=== PATIENT | female | born 1970 | race Caucasian/White ===

== ENCOUNTER 2018-12-03 10:58 | Inpatient (IN) | payer BC ==
[2018-12-03 12:03] LABS: ABS Basophils 0.1 10^3/ul (0-0.2); ABS Eosinophils 0.2 10^3/ul (0-0.6); ABS Lymphocytes 2.3 10^3/ul (1.0-4.8); ABS Monocytes 0.6 10^3/ul (0-0.8); ABS Neutrophils 8.8 10^3/ul (1.5-7.7); ABS Nucleated RBC 0 10^3/ul; Eosinophil % 1.9 %; Hematocrit 46 % (35-47); Hemoglobin 15.8 g/dl (12.0-16.0); Lymphocyte % 19.4 %; Mean Corpuscular HGB Conc 35 g/dl (31-36); Mean Corpuscular Hemoglobin 31 pg (27-31); Mean Corpuscular Volume 90 fL (80-97); Mean Platelet Volume 9.8 fL (7.4-10.4); Nucleated Red Blood Cells % 0; Platelet Count 301 10^3/ul (150-450); Red Blood Count 5.08 10^6/ul (4.00-5.40); Red Cell Distribution Width 12 % (10.5-15)
[2018-12-03 12:15] LABS: C Reactive Protein 15.78 mg/L (<8.01); Calcium 9.4 mg/dL (8.6-10.3); EGFR Non-African American 100.9 (>60); Potassium 4.1 mmol/L (3.5-5.0)
--- NOTE | 2018-12-03 12:23 | ED ---
Skin Complaint - HPI Summary HPI Summary: Patient is a 48-year-old female who was sent in by the wound care. Clinic for concern over osteomyelitis. Dr. Simon called to Dr. Katz for a direct admit. However, patient came to ED. Basic labs obtained. Patient states the course of less than 2 weeks, a small area to the anterior right lower extremity has now become a large ulcer. Also she states she has been dealing with the middle toe with erythema x 8 mos which has recently worsened over the past 1.5 mos after her dogs nail punctured the area. This continues to drain intermittently, yellow purulent discharge. None currently. She denies any fevers, sweats, chills. She denies any pain to the lower extremity otherwise. - History of Current Complaint Chief Complaint: EDSoftTissueLowExtr Time Seen by Provider: 12/03/18 11:57 Stated Complaint: WOUND ON RIGHT LEG Hx Obtained From: Patient Onset/Duration: Started Hours Ago, Started Weeks Ago Skin Exposure Onset/Duration: Hours Ago, Weeks Ago Timing: Constant Onset Severity: Mild Current Severity: Mild Pain Intensity: 5 Pain Scale Used: 0-10 Numeric Skin Location: Discrete - right lower extremity BTK Character: Swelling, Pruritus, Redness Aggravating Symptom(s): Nothing Alleviating Symptom(s): Nothing Associated Signs & Symptoms: Negative Related History: Trauma - Allergy/Home Medications Allergies/Adverse Reactions: Allergies Allergy/AdvReac Type Severity Reaction Status Date / Time Iodinated Contrast- Oral and Allergy Numbness Verified 12/03/18 11:09 IV Dye Penicillins Allergy Swelling Verified 12/03/18 11:09 Of Face,Lips,& Throat Sulfa (Sulfonamide Allergy Itching Verified 12/03/18 11:09 Antibiotics) Home Medications: Home Medications Loratadine/Pseudoephedrine [Allergy Relief D-24Hr Tablet] 1 tab PO QPM 12/03/18 [History Confirmed 12/03/18] PMH/Surg Hx/FS Hx/Imm Hx Previously Healthy: Yes Infectious Disease History: No Infectious Disease History: Denies: Traveled Outside the [place] in Last 30 Days - Social History Occupation: Employed Full-time Lives: With Family Alcohol Use: None Hx Substance Use: No Substance Use Type: Reports: None Hx Tobacco Use: No Review of Systems Constitutional: Negative Negative: Fever, Chills, Fatigue, Skin Diaphoresis Negative: Palpitations, Chest Pain Negative: Shortness Of Breath, Cough Negative: Abdominal Pain, Vomiting, Diarrhea, Nausea Genitourinary: Negative Positive: no symptoms reported, see HPI Negative: Arthralgia, Myalgia Positive: Other - erythematous the right lower extremity with large 2 cm and 3 cm ulceration Neurological: Negative All Other Systems Reviewed And Are Negative: Yes Physical Exam Triage Information Reviewed: Yes Vital Signs On Initial Exam: Initial Vitals Temp Pulse Resp BP Pulse Ox 99.3 F 106 16 146/72 95 12/03/18 11:03 12/03/18 11:03 12/03/18 11:03 12/03/18 11:03 12/03/18 11:03 Vital Signs Reviewed: Yes Appearance: Positive: Well-Appearing, Well-Nourished Skin: Positive: Warm, Skin Color Reflects Adequate Perfusion, Other - Right lower extremity erythema with 2 cm and 3 cm ulcerations with no discharge currently. No excoriations. Patient endorses sensation of itching. Neck: Positive: Supple, No Lymphadenopathy Respiratory/Lung Sounds: Positive: Clear to Auscultation, Breath Sounds Present Cardiovascular: Positive: RRR, Pulses are Symmetrical in both Upper and Lower Extremities Musculoskeletal: Positive: Normal, Strength/ROM Intact Neurological: Positive: Speech Normal Psychiatric: Positive: Normal, Affect/Mood Appropriate Diagnostics - Vital Signs Vital Signs Temp Pulse Resp BP Pulse Ox 12/03/18 11:03 99.3 F 106 16 146/72 95 - Laboratory Lab Results: Lab Results 12/03/18 12/03/18 Range/Units 11:46 11:46 WBC 12.0 H (3.5-10.8) 10^3/ul RBC 5.08 (4.00-5.40) 10^6/ul Hgb 15.8 (12.0-16.0) g/dl Hct 46 (35-47) % MCV 90 (80-97) fL MCH 31 (27-31) pg MCHC 35 (31-36) g/dl RDW 12 (10.5-15) % Plt Count 301 (150-450) 10^3/ul MPV 9.8 (7.4-10.4) fL Neut % (Auto) 72.8 % Lymph % (Auto) 19.4 % Rankin % (Auto) 5.4 % Eos % (Auto) 1.9 % Baso % (Auto) 0.5 % Absolute Neuts (auto) 8.8 H (1.5-7.7) 10^3/ul Absolute Lymphs (auto) 2.3 (1.0-4.8) 10^3/ul Absolute Monos (auto) 0.6 (0-0.8) 10^3/ul Absolute Eos (auto) 0.2 (0-0.6) 10^3/ul Absolute Basos (auto) 0.1 (0-0.2) 10^3/ul Absolute Nucleated RBC 0 10^3/ul Nucleated RBC % 0 ESR Pending Sodium 133 L (135-145) mmol/L Potassium 4.1 (3.5-5.0) mmol/L Chloride 103 (101-111) mmol/L Carbon Dioxide 22 (22-32) mmol/L Anion Gap 8 (2-11) mmol/L BUN 12 (6-24) mg/dL Creatinine 0.63 (0.51-0.95) mg/dL Est GFR ( Amer) 122.0 (>60) Est GFR (Non-Af Amer) 100.9 (>60) BUN/Creatinine Ratio 19.0 (8-20) Glucose 291 H (70-100) mg/dL Calcium 9.4 (8.6-10.3) mg/dL C-Reactive Protein 15.78 H (<8.01) mg/L Result Diagrams: 12/03/18 11:46 12/03/18 11:46 Lab Statement: Any lab studies that have been ordered have been reviewed, and results considered in the medical decision making process. Course/Dx - Course Course Of Treatment: During the course of treatment, the patient is evaluated for right lower extremity erythema, blanchable, non-painful, slightly edematous with large 3 cm and 2 cm respectively ulcerations to the right anterior lower extremity. She also endorses right middle toe. Discharge which is been intermittent. She was sent here by Dr. Simon for direct admit, however she came to the ED. Discussed this case with Dr. lopez at 12:30 PM who agrees to admit to the floor. Labs obtained. Wound culture was obtained at wound clinic. They will continue to provide imaging once patient is admitted. - Differential Diagnoses - Skin Complaint Differential Diagnoses: Other - Osteomyelitis - Diagnoses Provider Diagnoses: Ulcer, Cellulitis Discharge - Sign-Out/Discharge Documenting (check all that apply): Patient Departure Patient Received Moderate/Deep Sedation with Procedure: No - Discharge Plan Condition: Stable Disposition: ADMITTED TO [facility] Referrals: No Primary Care Phys,NOPCP [Primary Care Provider] - - Billing Disposition and Condition Condition: STABLE Disposition: Admitted to [facility]
[2018-12-03] MEDS ORDERED: oxyCODONE/Acetamin 5/325 MG* TAB PO PRN (13:03)
[2018-12-03 13:18] LABS: Erythrocyte Sed Rate 44 mm/Hr (0-14)
[2018-12-03] MEDS ORDERED: Vancomycin(*) 1,250 MG in NS 0.9% 250 ML* 250 ML IVPB ONE (13:32)
--- NOTE | 2018-12-03 13:54 | CONS ---
CONSULTATION REPORT: DATE OF CONSULT: 12/03/18 REFERRING PROVIDER: Dr. Danni Katz. REASON FOR CONSULTATION: Right third toe ulcer and right distal anterior mota ulcer with cellulitis. HISTORY OF PRESENT ILLNESS: Ms. Augusta Arroyo is a 48-year-old woman, who does not undergo routine medical care, who lives in [place], [place], who was seen by me in the [facility] this morning after she was referred from the [facility] where she was seen last week. She presented to the emergency room there last week. According to the records and to her, she had complaints of a new wound at the distal right anterior mota , which had worsened. In addition, she states that last fall when she was trimming her nails on the right third toe, sustained an injury with a persistent ulceration that had not healed since that time. She had not sought care, but when the ulceration developed in the right lower mota area and became chronic and subsequently enlarged in size over the past several weeks, she presented to the emergency room. She denied recent fevers. She was noted to be afebrile on a visit there last week. At that time, she was noted to have a white blood cell count of 15,000. Her blood sugar was noted to be 257. Electrolytes and renal function were all unremarkable. She had an albumin of 3.5. I do not see where plain x-rays were obtained. She thought that cultures had been obtained, but I do not see them either in the [facility] records or the [facility] records. She was started on clindamycin and referred to the wound center here today. She states that the right foot and distal calf have been red and swollen for several weeks. She has not had fever, shakes, or chills. She has been ambulating wearing shoes. She does not work; however, does spend the day taking care of her grandchildren. She smokes about a quarter pack of cigarettes per day. She denies other medical issues such as diabetes, coronary artery disease, peripheral vascular disease. She has no neuropathic changes in either lower extremity. PAST MEDICAL HISTORY: Unremarkable. PAST SURGICAL HISTORY: None. MEDICATIONS: Clindamycin, started last week. ALLERGIES: GADOLINIUM, IODINE, peanuts, PENICILLIN, and SULFA. SOCIAL HISTORY: She does not drink alcohol. She lives with her . She smokes about a quarter pack of cigarettes per day. REVIEW OF SYSTEMS: Otherwise, unremarkable as per above. PHYSICAL EXAM: She is afebrile. Heart rate is regular in the 80s. In general , she is a well-developed, well-nourished female, appears to be in no apparent distress. The left lower extremity shows no evidence of swelling, hair loss. She has weakly palpable dorsalis pedis and posterior tibial pulses in the left foot. There is no ulceration in the left foot. She seems to be intact to light touch and pinprick. In the right lower extremity, there is redness of the foot in the distal half of the mota with edema. This is mildly tender. Overlying the nail bed at the right third toe is an opening without evidence of an abscess or purulent drainage. However, this probes several millimeters, but it is too painful to advance and I am not certain if bone is exposed or this tracts to bone. Also noted on the right distal mota is a chronic-appearing ulcer of approximately 3 x 3 cm with a fibrin base. More proximal and in confluence with this lower ulceration is some discolored skin and more superficial ulceration with some turbid fluid that drains from around the edges. There is no dry eschar. I appreciate no fluctuance. There is no crepitans noted. IMPRESSION: Right third toe ulcer, right lower mota ulceration. The patient is quite vague as to the etiology of the mota ulcer and basically states that "these have just appeared." She denies trauma, insect bites, or repetitive injury. I am not certain of the etiology, although this may be venous. The history is not typical for this. I think she may have a component of peripheral vascular disease and is a smoker as well. Also, the concern is an osteomyelitis in the right third toe or distal foot, which also needs to be evaluated. After seeing the patient in the wound center and evaluating her leg and the fact that it does not appear to be improving with local wound care as well as oral clindamycin, I feel strongly that she should be admitted to the hospital for further care including IV antibiotics and an expedited workup. I discussed the care with Dr. Katz, the hospitalist who will admit, and we will see her in surgical consultation for wound care and further workup. PLAN: 1. I recommend IV antibiotics. 2. Wound care will be initiated. 3. MRI of the foot should be obtained to rule out osteomyelitis. 4. Consider a CAT scan of the lower extremity to rule out deeper soft tissue infection mainly in the distal mota area. 5. Noninvasive arterial study should be obtained. 6. Consideration of ID consultation for management of antibiotics in light of her allergies and possible osteomyelitis. Thank you for the consultation. We will follow her closely with you. [id number]/[facility] #: [id number] RIGO
[2018-12-03] MEDS ORDERED: Vancomycin per Pharmacy* NOTE FOLLOW UP SCH (14:00)
[2018-12-03] MEDS ORDERED: NS 0.9% 1000 ML** 1,000 ML IV SCH (14:15)
[2018-12-03] MEDS: Ibuprofen TAB* 800 MG PO PRN ×2 (14:36→20:23)
--- NOTE | 2018-12-03 17:05 | HP ---
CC: Dr. Coleen Ryan; Dr. Marcus Simon * HISTORY AND PHYSICAL: DATE OF ADMISSION: 12/03/18 PRIMARY CARE PROVIDER: Dr. Coleen Ryan. OTHER PROVIDER: Dr. Marcus Simon. ATTENDING PHYSICIAN: Dr. Danni Katz * (dictated by ISA Cavazos). CHIEF COMPLAINT: Nonhealing wounds on the right lower extremity. HISTORY OF PRESENT ILLNESS: Mrs. Arroyo is a 48-year-old female with no reported past medical history, who complains of right lower extremity third digit wound that has been present for approximately 8 months. She states she was filing her toenail with a Dremel like tool. The machine was pamela and she injured her third toe. She also states that at that time a month ago, she had a lateral mota wound that was also present. She is unsure how she got that wound. She managed the wounds on her own for approximately 6-1/2 months and they shrank in size and then would reappear, but never fully healed. Approximately 1-1/2 months ago, the patient reports that she had swelling and redness that were intermittent and located only in her foot. The wound on her third digit was still present at that time. She states that the swelling and redness would occur 1 to 2 times per week. She believes that this began when the wound was almost healed, but was re-injured by a dog in her household stepping on her toe. This persisted for approximately a month and a half. Approximately 1 week ago, the patient states that she woke up and her right pant leg was soaked through from weeping of the shine wound on the right lower extremity that was located on her mota. She sought medical attention at that time and was given a prescription for clindamycin 300 mg q.i.d., which she has been taking as directed. She was also instructed in managing the wound with wet -to-dry dressings at night and dry dressings during the day. She did this for one week. Today, she presented to the [facility] to see Dr. Simon regarding her mota wound, which had increased in size over the last 1 week. The right toe wound remains the same size, but is also not healing and has an opening at the base of the toe. The foot and mota had turned red and had started to swell. The patient states that she has tried ibuprofen, which has helped a bit with the pain. Elevation does not appear to change the pain or decrease the swelling. Today, she describes the pain as an ache that is rated at a 2/10. The pain does not radiate. It is constant with varying degrees of intensity that ebbs and flows. The mota redness appeared Saturday with the onset of weeping. The patient denies chest pain, shortness of breath, headache, vision changes, abdominal pain, nausea, vomiting, diarrhea, constipation, or pain in her upper extremities or left lower extremity. She denies calf tenderness. She denies fever, chills, warmth of the right lower extremity, color changes other than erythema to the right lower extremity. She saw Dr. Simon today who sent her to be directly admitted. She came to the ER and was evaluated. While in the emergency room, the patient received a workup. The hospitalists were then asked to evaluate for admission. PAST MEDICAL HISTORY: None. PAST SURGICAL HISTORY: x1; lumbar spine L5-S1 surgery; cervical spine surgery, plates and screws; hysterectomy. HOME MEDICATIONS: Loratadine/pseudoephedrine 1 tab p.o. q.p.m. ALLERGIES: IODINATED CONTRAST, numbness; PENICILLIN, swelling of face, lips and throat; SULFA, swelling of face, lips and throat; PEANUTS, hives and throat swelling. FAMILY HISTORY: Father of lung cancer. Mother is healthy. The patient states that all of her grandparents are . She notes a history of esophageal cancer as well as CVA, although she is unsure how her grandparents . SOCIAL HISTORY: The patient smokes approximately a quarter of a pack per day for approximately 30 years. She rarely drinks, stating that she drinks less than 1 drink per week. She is and lives with her . She has 2 kids who live out of the house. She takes care of her grandchildren. In the event that she is unable to make her own medical decisions, she appoints her , Nilson Arroyo, phone number [phone], as her decision maker. REVIEW OF SYSTEMS: A 10-point review of systems was performed and all the pertinent positives and negatives are in the HPI. All other systems are negative. PHYSICAL EXAMINATION GENERAL: Ms. Arroyo is a well-developed, well-nourished white woman, who is sitting in a chair. She is in no acute distress. She appears her stated age. VITAL SIGNS: Temperature 99.6, heart rate is 66, respiratory rate is 16, oxygen saturation is 98% on room air, blood pressure is 134/82. HEENT: Visual aguilar are grossly intact. Pupils are equally round and reactive to light. Extraocular movements are intact. Sclerae are without icterus. Hearing is grossly intact. External auditory canals are patent. They are free of cerumen. The tympanic membranes are intact with visible landmarks. Nares are patent with moist mucous membranes and nonerythematous. Oral mucous membranes are moist and without lesions. Pharynx is clear. NECK: Full range of motion. Thyroid is not palpable. Trachea is at midline. No lymphadenopathy. Nontender to palpation. RESPIRATORY: Symmetrical chest expansion with no use of accessory muscles. Lungs are clear to auscultation. No rhonchi, wheezes, or rales. CARDIOVASCULAR: Regular rate and rhythm. S1, S2 present. No murmurs, rubs, or gallops. No JVD. ABDOMEN: Bowel sounds in all quadrants. Abdomen is soft and nontender to palpation. There is no hepatosplenomegaly. MUSCULOSKELETAL: Full range of motion. No pain or deformities. EXTREMITIES: Skin is warm and smooth bilaterally. There is no clubbing or cyanosis. Radial and pedal pulses are 2+ bilaterally. No edema in the upper extremities or the left lower extremity. Right lower extremity with 1+ pitting edema. The right lower extremity is erythematous, but not warm to the touch. There is a toenail deformity as well as a small wound at the base of the right third toenail which appears deep. The wound is weeping and has purulent discharge when gently expressed. The right mota has a large wound with regular edges that is deep. The wound is approximately 2 mm deep. The open wound measures approximately 1.5 x 1.5 inches. Just above that wound, there is an unopened wound that is flat against the skin and measures approximately 2 x 1.5 inches. The patient's right lower extremity is erythematous from the knee distal. NEURO: The patient is awake, alert, and oriented x3. Cranial nerves are grossly intact. She is able to move all of her extremities. Her motor strength is 5/5 in both upper and lower extremities. She has a steady gait with no impairments. DIAGNOSTIC STUDIES/LAB DATA: WBC 12.0, RBC 5.08, HGB 15.8, HCT 46, ESR 44. Sodium 133, potassium 4.1, chloride 103, carbon dioxide 22, BUN 12, creatinine 0.63, glucose 291. CRP 15.78. ASSESSMENT AND PLAN: Ms. Arroyo is a 48-year-old female with no past medical history, who presents to the ER today with complaints of a nonhealing wound. The patient will be admitted to observation for: 1. Cellulitis versus osteomyelitis. The patient has 2 lower extremity wounds that have not healed or improved with the use of clindamycin over the last 1 week. She has had these wounds for approximately 8 months; they have gone through various stages of healing, but have never fully healed. For pain control, acetaminophen 650 or oxycodone/acetaminophen have been ordered. An MRI of the right lower extremity has been ordered to determine if the patient has osteomyelitis. Ankle-brachial indexes have been ordered to determine if the patient has sufficient blood flow to the area. Infectious Disease has been consulted regarding the patient's multiple allergies to antibiotics such as PENICILLIN and SULFA.. Dr. Simon and the surgical team will continue to follow along as he was her wound care doctor. Vancomycin has been ordered. Ceftriaxone has been ordered. 2. Hyperglycemia. The patient's blood glucose random was 291. Hemoglobin A1c ordered. Fingerstick glucose a.c. ordered. Once results of hemoglobin A1c obtained, consider diabetic diet education if necessary. 3. FEN: IV normal saline at 100 cc per hour x1 bag. Heart-healthy, consistent carbohydrate diet. 4. DVT prophylaxis: Based on the DVT Risk Assessment, the patient is moderate risk. I will order Lovenox 40 daily. 5. Code status: The patient is full code. TIME SPENT: Approximately 60 minutes was spent on this admission, greater than half that time was spent with the patient obtaining history, performing physical , and reviewing the plan of care. The case has been reviewed with my attending, Dr. Katz, who is in agreement with the plan of care. ISA FRIED [id number]/[facility] #: [id number] RIGO
[2018-12-03] MEDS ORDERED: Dextrose 50% Syringe 50 ML* 25 GM/50 ML SYRINGE IV PUSH PRN (17:17)
[2018-12-03] MEDS: Pseudoephedrine HCL ER TAB* 120 MG PO SCH (17:39)
[2018-12-03] MEDS: CMCS: LoraTADine TAB(NF) 10 MG TAB (AUTOSUB to CETIRIZINE) PO SCH (17:39)
[2018-12-03] MEDS: Acetaminophen TAB* 325 MG PO PRN ×2 (17:39→23:46)
[2018-12-03] MEDS ORDERED: [UNRECOGNIZED DRUG - REMARK] PO SCH (18:00)
[2018-12-03] MEDS: cefTRIAXone(*) 1 GM in NS 0.9% 50 ML* 50 ML IVPB SCH (18:09)
--- NOTE | 2018-12-03 18:16 | PN ---
Hospitalist Progress Note Date of Service: 12/03/18 Ms Arroyo is a 48 year old female with no known/reported medical history that was sent to [facility] for a non-healing right mota ulcer and wound to 3rd toe. Patient has been seen by Dr. Simon from surgery who sent the patient for MRI to r/o osteo. Imaging reveals an abscess that will require surgical debridement. Patient is also found to have an A1C of >9, and ANANT's obtained are in the range of 0.3-0.6, indicating poor vascular flow. Plan is to take the patient to the OR tomorrow for surgical debridement of the mota, follow up MRI of the toe and revascularization in IR with Dr. Galindo on Saturday. In terms of medical optimization, we will obtain an EKG and start patient on insulin SS and diabetic diet. Patient denies chest pain, no SOB, no chest pain at rest. She sleeps on a single pillow at night and endorses no exertional dyspnea. she is able to walk up several flights of stairs without requiring rest. She has no family history of CAD/no sudden cardiac . Patient is medically optimized for surgery, she has an RCRI Risk Score of 1 Point, Class II Risk with a 6.0% chance of major cardiac event. I would recommend consultation with endocrine before discharge to help manage newly diagnosed diabetes to aid in wound healing. Patient is cleared to proceed with surgery in the morning. Keep NPO after midnight. Continue atbx as ordered, follow cultures.
[2018-12-03] MEDS ORDERED: Buffered Lidocaine 1% SYRIN* 1 ML/SYRINGE INTRADERM ONE (19:30)
[2018-12-03] MEDS: Lactated Ringers 1000 ML Bag* 1,000 ML IV SCH (20:16)
[2018-12-03] MEDS: Insulin LISPRO* 1 UNITS UNIT SUBCUT SCH (20:53)
[2018-12-03] MEDS: Vancomycin(*) 1,250 MG in NS 0.9% 250 ML* 250 ML IVPB SCH (23:43)
[2018-12-04] MEDS: Ibuprofen TAB* 800 MG PO PRN (04:36)
[2018-12-04] MEDS: Lactated Ringers 1000 ML Bag* 1,000 ML IV SCH ×2 (05:35→21:05)
[2018-12-04 06:44] LABS: ABS Basophils 0.1 10^3/ul (0-0.2); ABS Eosinophils 0.1 10^3/ul (0-0.6); ABS Lymphocytes 1.2 10^3/ul (1.0-4.8); ABS Monocytes 0.6 10^3/ul (0-0.8); ABS Neutrophils 8.4 10^3/ul (1.5-7.7); ABS Nucleated RBC 0 10^3/ul; Eosinophil % 1.4 %; Hematocrit 43 % (35-47); Hemoglobin 14.5 g/dl (12.0-16.0); Mean Corpuscular HGB Conc 34 g/dl (31-36); Mean Corpuscular Hemoglobin 31 pg (27-31); Mean Corpuscular Volume 90 fL (80-97); Mean Platelet Volume 9.4 fL (7.4-10.4); Nucleated Red Blood Cells % 0.1; Platelet Count 243 10^3/ul (150-450); Red Blood Count 4.75 10^6/ul (4.00-5.40); Red Cell Distribution Width 13 % (10.5-15); White Blood Count 10.4 10^3/ul (3.5-10.8)
[2018-12-04 07:09] LABS: BUN/Creatinine Ratio 20.9 (8-20); Calcium 9.1 mg/dL (8.6-10.3); EGFR African American 189.6 (>60); EGFR Non-African American 156.7 (>60); Potassium 3.7 mmol/L (3.5-5.0)
[2018-12-04] MEDS: Insulin LISPRO* 1 UNITS UNIT SUBCUT SCH ×4 (07:31→21:11)
[2018-12-04] MEDS: Vancomycin(*) 1,250 MG in NS 0.9% 250 ML* 250 ML IVPB SCH ×2 (07:32→17:18)
[2018-12-04] MEDS ORDERED: HYDROmorphone INJ1* 1 MG/ML SYRINGE IV SLOW PU PRN ×2 (08:01)
--- NOTE | 2018-12-04 09:24 | PN ---
Progress Note - Progress Note Date of Service: 12/04/18 SOAP: Subjective: Feeling a little better No pain in right foot Objective: Temp Pulse Resp BP Pulse Ox 98.5 F 86 18 159/59 95 12/04/18 07:33 12/04/18 07:33 12/04/18 07:45 12/04/18 07:33 12/04/18 07:33 PEX: Right foot with less edema and redness, Dressing in place on right mota Labs reviewed-BS elevated MRI right leg-possible abscess right omta, possible osteo right third toe ANANT's reviewed-significant PVD in both lower extremities Assessment: Ulcer right third toe Ulcer with possible abscess right mota PVD Plan: To OR today for incision and drainage/debridement of right mota ulcer. Procedure discussed with patient and risks of bleeding, infection, limb loss, anesthesia all explained. Also discussed with Dr. Meade-she will need further vascular evaluation with possible angiogram. For now will treat ulcer third toe with antibiotics and avoid debridement/amputation of right third toe until possible vascular intervention to improve inflow. May consider ortho foot consult as well.
[2018-12-04] MEDS ORDERED: Midazolam* 1 MG/ML 2 ML VIAL (2 MG) ONE (09:42)
[2018-12-04] MEDS ORDERED: fentaNYL* 50 MCG/ML 2 ML VIAL (100 MCG VIAL) ONE ×3 (09:42→11:15)
[2018-12-04] MEDS ORDERED: Lidocaine 2% PF * 5 ML VIAL ONE (10:20)
[2018-12-04] MEDS ORDERED: Naloxone* 0.4 MG/ML 1 ML VIAL IV PRN (10:47)
[2018-12-04] MEDS ORDERED: DiMENhydriNATE IV* 50 MG/ML VIAL IV PUSH PRN (10:47)
[2018-12-04] MEDS ORDERED: diPHENhydraMINE IV* 50 MG/ML 1 ml VIAL (BENADRYL) IV PRN (10:47)
[2018-12-04] MEDS ORDERED: Ondansetron INJ* 2 MG/ML VIAL IV PRN (10:47)
[2018-12-04] MEDS ORDERED: fentaNYL* 50 MCG/ML 2 ML VIAL (100 MCG VIAL) IV PRN (10:47)
[2018-12-04] MEDS ORDERED: Levalbuterol 1.25MG/0.5ML NEB INH PRN (10:47)
[2018-12-04] MEDS ORDERED: PROCHLORPERAZINE INJ 5 MG/ML 2 ML VIAL IV PRN ×2 (10:47→17:12)
[2018-12-04] MEDS ORDERED: Levalbuterol HFA INHALER* 1 PUFF MDI ONE (10:56)
[2018-12-04] MEDS ORDERED: Propofol* 10 MG/ML 20 ML BTL ONE (10:56)
[2018-12-04] MEDS ORDERED: Ondansetron INJ* 2 MG/ML VIAL ONE (10:56)
[2018-12-04] MEDS ORDERED: Ketorolac INJ* 30 MG/ML 1 ML VIAL ONE (10:56)
[2018-12-04] MEDS ORDERED: Dexamethasone IV* 4 MG/ML 1 ML (4 MG) ONE (10:56)
[2018-12-04] MEDS ORDERED: HYDROmorphone INJ1* 1 MG/ML SYRINGE ONE (11:12)
--- NOTE | 2018-12-04 11:27 | BRIEFOPN ---
Brief Operative Note - Surgery Procedures: OPERATIVE NOTE Pre-Operative Diagnosis: Abscess right mota, right third toe ulcer Post-Operative Diagnosis: Same Procedure:I and D abscess right mota, debridement ulcer right third toe Surgeon:Alfred [employer] Operator:None Anesthesia: General with Dr. Gresham IVF:Min EBL:Min Specimen:Gram stain and culture from right omta and right third toe ulcer Drain: none Wound Class:4 TO PACU
--- NOTE | 2018-12-04 11:29 | CONSULT ---
Consult Consult: Date of Service: 12/04/18 Requesting Service: [facility] Hospitalist / Marry Taylor NP Reason for Consultation: Abnormal ANANT in the presence of multiple lower leg & feet wounds Admission Date: 12/03/18 PRIMARY CARE PROVIDER: Dr. Coleen Ryan. CHIEF COMPLAINT: Non-healing wounds on the right lower extremity. HISTORY OF PRESENT ILLNESS: is present at bedside and supplements H&P. Mrs. Arroyo is a 48-year-old female with no reported past medical history, who complains of right lower extremity third digit wound that has been present for approximately 8 months. She states she was filing her toenail with an electric tool. The machine was pamela and she injured her third toe. She also states that at that time a month ago, she had a lateral mota wound that was also present. She is unsure how she got that wound. She managed the wounds on her own for approximately 6-1/2 months and they shrank in size and then would reappear, but never fully healed. Approximately 1-1/2 months ago, the patient reports that she had swelling and redness that were intermittent and located only in her foot. The wound on her third digit was still present at that time. Approximately 1 week ago, the patient states that she woke up and her right pant leg was soaked through from weeping of the mota wound on the right lower extremity. She sought medical attention at that time and was given a prescription for clindamycin 300 mg q.i.d., which she has been taking as directed. She was also instructed in managing the wound with wet-to-dry dressings at night and dry dressings during the day. She did this for one week. She [facility] regarding her mota wound, which had increased in size over the last 1 week. The right toe wound remains the same size, but is also not healing and has an opening at the base of the toe. The foot and mota had turned red and had started to swell. Dr. Simon directed her to the ER for admission. Prior to these wounds the patient reports about 1 year history of hip and buttock claudication. She estimates that prior to these wounds she could walk 50 yards or less before she began experiencing hip and buttock pain that caused her to rest. If she kept walking then the pain would descend to involve her thighs and calves. She states the pain is fairly symmetric causing her to assume it was her back. She also reports occasional nighttime "elizabeth horses" that impoved when she got up or "shook her leg out". The patient denies chest pain, shortness of breath, headache, vision changes, abdominal pain, nausea, vomiting, diarrhea, constipation, or pain in her upper extremities or left lower extremity. She denies fever, chills, warmth of the right lower extremity, color changes other than erythema to the right lower extremity. The patient reports her right arm and leg "going numb" after receiving IV contrast during an MRI scan at [facility]. She states she was observed for 2 hours and was discharged to home after the symptoms went away. She denies feeling short of breath or experiencing rash or hives. PAST MEDICAL HISTORY: None. PAST SURGICAL HISTORY: x1; lumbar spine L5-S1 surgery; cervical spine surgery, plates and screws; hysterectomy. HOME MEDICATIONS: Loratadine/pseudoephedrine 1 tab p.o. q.p.m. ALLERGIES: IODINATED CONTRAST, numbness; PENICILLIN, swelling of face, lips and throat; SULFA, swelling of face, lips and throat; PEANUTS, hives and throat swelling. FAMILY HISTORY: Father of lung cancer. Mother is healthy. SOCIAL HISTORY: The patient smokes approximately a quarter of a pack per day for approximately 30 years. She drinks less than 1 drink per week. She is and lives with her . She has 2 kids who live out of the house. She takes care of her grandchildren. REVIEW OF SYSTEMS: A 10-point review of systems was performed and all the pertinent positives and negatives are in the HPI. All other systems are negative. PHYSICAL EXAMINATION: Patient sitting in bed following right anterior lower leg I&D. NAD, AAO x 3 RRR, S1/S2 CTAB Abd is soft, nontender 2+ pulses are palpated the bilateral radial and brachial arteries Auscultation overlying the expected location of the aorta and iliac arteries does not reveal a bruit. Neither common femoral artery or popliteal artery are palpable. Pedal arteries are NONPALPABLE. The anterior right lower leg is dressed with sterile gauze with an ice pack status post I&D. The right forefoot is wrapped in sterile gauze as well. Selected Entries 12/04/18 12/04/18 11:21 11:27 Pulse Rate 116 Heart Rate 116 Respiratory 17 Rate Blood Pressure 220/111 (mmHg) Blood Pressure 149 Mean O2 Sat by Pulse 95 Oximetry RELEVANT IMAGING: Patient Name: RADHA ARROYO Medical Record#: [id number] Ordering Physician: Makayla MOSS Acct.#: [id number] : 1970 Age: 48 Sex: F Location: SURGICAL STAY UNIT Exam Date: 12/03/181309 ADM Status: ADM Stephen Order Information: VL ANK/ BRACHIAL INDICES Accession Number: [id number] CPT: 03245 INDICATION: Right lower extremity pain and nonhealing ulcers COMPARISON: None. TECHNIQUE: Ankle-brachial indices and Doppler tracings were obtained of the lower extremities bilaterally. Volume pulse recordings were acquired at the bilateral ankles. REPORT: Ankle-brachial indices: Right: Value (SBP) Index Brachial: 162 Posterior tibialis: 103 0.64 Dorsalis pedis: 88 0.54 Digit: 41 0.25 Left: Value (SBP) Index Brachial: 157 Posterior tibialis: 58 0.37 Dorsalis pedis: 53 0.33 Digit: 79 0.49 Doppler waveforms (acquired at rest): In the interrogated lower extremity arteries, Doppler waveforms are monophasic in all distributions with noticeably reduced amplitude at the right dorsalis pedis and right digit. Volume pulse recordings (acquired at rest): Volume pulse recordings, measured at the bilateral ankles, are symmetric. IMPRESSION: ANANT values are consistent with rest pain with lower values recorded in the left lower extremity but more abnormal arterial waveforms recorded in the right lower extremity. In the presence of nonhealing wounds catheter arteriography is likely indicated for superior vascular characterization. Findings were discussed over the telephone with Dr. Katz at 1624 hours on December 03, 2018. <Electronically signed by Sj Galindo MD in OV> 12/03/181623 Dictated By: Sj Galindo MD Dictated Date/Time: 12/03/181623 LABS: Laboratory Tests 12/03/18 12/03/18 12/03/18 11:46 16:33 20:26 WBC RBC Hgb Hct BUN Creatinine Est GFR ( Amer) Est GFR (Non-Af Amer) Glucose POC Glucose (mg/dL) 160 H 258 H Hemoglobin A1c 9.5 H 12/04/18 12/04/18 12/04/18 06:33 06:33 09:23 WBC 10.4 RBC 4.75 Hgb 14.5 Hct 43 BUN 9 Creatinine 0.43 L Est GFR ( Amer) 189.6 Est GFR (Non-Af Amer) 156.7 Glucose 211 H POC Glucose (mg/dL) 152 H Hemoglobin A1c 12/04/18 11:44 WBC RBC Hgb Hct BUN Creatinine Est GFR ( Amer) Est GFR (Non-Af Amer) Glucose POC Glucose (mg/dL) 171 H Hemoglobin A1c Impression: Based on the recent ANANT values, the patient's reported clinical symptoms and physical exam findings I am suspecting at least aortoiliac occlusive disease. Plan: 1. Arterial duplex to include the lower abdominal aorta and iliac arteries will be ordered to better identify the location of the anticipated occlusions and stenoses and to determine the feasibility of endovascular repair. 2. The patient has a questionable reaction to MRI contrast. In light of this maximum imaging acquisition with ultrasound will be acquired and CO2 arteriography will be employed when and if the patient goes to the angiography suite. 3. The correlation between cigarette smoking and occlusive arterial disease was made clear to the patient and she was encouraged not to smoke cigarettes. 4. If the patient stabilizes clinically with antibiotic therapy and supportive care, as well as diabetes management, likely her arteriogram can be performed as an outpatient.
[2018-12-04] MEDS: traMADol TAB* 50 MG PO PRN (12:40)
[2018-12-04] MEDS ORDERED: oxyCODONE/Acetamin 5/325 MG* TAB PO PRN ×2 (12:41→12:42)
--- NOTE | 2018-12-04 12:59 | OP ---
DATE OF OPERATION: 12/04/18 - ROOM #334 DATE OF : 70 SURGEON: Dr. Simon. JUKEBOX CHECKER: None. ANESTHESIOLOGIST: Dr. Gresham. ANESTHESIA: General. PREOPERATIVE DIAGNOSES: 1. Right mota abscess and chronic ulcer. 2. Right third toe ulcer. POSTOPERATIVE DIAGNOSES: 1. Right mota abscess and chronic ulcer. 2. Right third toe ulcer. OPERATIVE PROCEDURES: 1. Incision and drainage of abscess, right mota. 2. Debridement of ulcer, right third toe with culture. ESTIMATED BLOOD LOSS: Minimal. SPECIMENS: 1. Gram stain and culture from right mota abscess. 2. Gram stain and culture from fluid, ulcer, right third toe. WOUND CLASSIFICATION: 4. DRAINS: None. COMPLICATIONS: None. BRIEF HISTORY: Ms. Augusta Arroyo is a 48-year-old woman who had presented to the wound center yesterday with a chronic ulcer on the tip of her right third toe. She also had a chronic large ulcer on the distal right anterior mota with necrotic skin and tissue superior to this, concerning for infection. She underwent an MRI yesterday, which showed edema in the right lower extremity with concern for an abscess in the subcutaneous space in the right mota. Also noted was probable osteomyelitis in the right third toe. She is now being taking to the operating room for an incision and drainage of the presumed abscess with debridement of the ulcer on the mota as well as minimal debridement of the right third toe. She is undergoing a cardiovascular workup and has been shown to have significant peripheral vascular disease and will require most likely possible vascular intervention before considering amputation and/or optimal treatment of the right third toe ulcer as well as the presumed osteomyelitis. DESCRIPTION OF PROCEDURE: Written informed consent was obtained, the right leg was marked with indelible ink. Preoperative antibiotics had already been administered. She was taken to the operating room and general anesthesia was administered. The entire right lower extremity was prepped and draped in the usual sterile fashion. Time-out verification was completed. Initially, the large ulcer in the distal anterior mota was debrided down to healthy muscle and fascia. There was no extension into the muscle and this was completely viable and red and pink. More superiorly, there was necrotic skin that was excised in an area of approximately 3 x 6 cm, exposing an underlying abscess that was drained and we drained creamy yellow pus, which was nonodorous. Cultures were sent. This extended down to the anterior fascia and some of the muscle, which was debrided, but this otherwise appeared to be viable and there was no deeper extension nor more superior extension. The necrotic skin was debrided. The area was irrigated. I then packed this wound with a moist Nat gauze and wrapped it with a Kerlix. Attention was then turned to the distal tip of the right third toe. There was a scab and the nail had been missing. The scab was removed and this did reveal exposed bone without abscess, however. Cultures were taken. The wound was minimally debrided, the bacitracin ointment was applied, and a sterile gauze was used to cover the distal foot. The patient tolerated the procedure well, was taken to the recovery room in stable condition. [id number]/[facility] #: [id number] RIGO
--- NOTE | 2018-12-04 13:17 | PN ---
Subjective Date of Service: 12/04/18 Interval History: Pt is sitting in bed. During our discussion she becomes nauseous and diaphoretic. Pt was given Dilaudid and Fentanyl for her procedure this morning , and she admits to GI upset with Percocent. Pt was given Zofran, which resolved her symptoms. VS were taken at time of event and are recorded below and are all WNL, except for slightly elevated BP. Pt expresses frustration with the past days events, stating that her HA1C was done recently, and it was "normal," but now it is elevated and she will be treated for diabetes. She is also requiring surgical intervention for nonhealing wounds of the RLE and revascularization. She denies CP, SOB, abd pain, v/d/c, pain in UE or LLE. She has pain in the RLE , which she rates at 4/10 currently. 1730: this evening, pt feels and looks well, but continues to have n/v. She states that she is very intolerant to percocet and believes she may be intolerant to other opiate medications as well. Objective Active Medications: Acetaminophen (Tylenol Tab*) 650 mg PO Q4H PRN Dextrose (D50w Syringe 50 Ml*) 12.5 gm IV PUSH .FOR FS < 60 - SS PRN Dimenhydrinate (Dramamine Iv*) 25 mg IV PUSH ONCE PRN Diphenhydramine HCl (Benadryl Iv*) 25 mg IV ONCE PRN Fentanyl Citrate (Fentanyl*) 25 mcg IV Q5M PRN Hydromorphone HCl (Dilaudid Inj1s*) 0.5 mg IV SLOW PU Q2H PRN Hydromorphone HCl (Dilaudid Inj1s*) 1 mg IV SLOW PU Q2H PRN Ceftriaxone Sodium 1 gm/ (Sodium Chloride) 50 mls @ 200 mls/hr IVPB Q24H SANDI Vancomycin HCl 1,250 mg/ (Sodium Chloride) 250 mls @ 166.667 mls/hr IVPB Q8H SANDI Lactated Ringer's (Lactated Ringers 1000 Ml Bag*) 1,000 mls @ 125 mls/hr IV PER RATE SANDI Ibuprofen (Motrin Tab*) 800 mg PO Q6H PRN Insulin Human Lispro (Humalog*) 0 units SUBCUT ACHS SANDI; Protocol Levalbuterol HCl (Xopenex 1.25 Mg/0.5 Ml Neb.Carline*) 1.25 mg INH ONCE PRN Loratadine (Claritin Tab(Nf)) 10 mg PO 1800 SANDI Naloxone HCl (Narcan*) 0.08 mg IV Q2M PRN Ondansetron HCl (Zofran Inj*) 4 mg IV ONCE PRN Pharmacy Consult (Vancomycin Per Pharmacy*) 1 note FOLLOW UP .VANC PER PHARMACY [facility] Pharmacy Profile Note (Vancomycin Trough Check) 1 note FOLLOW UP 1600 ONE Prochlorperazine Edisylate (Compazine Inj*) 5 mg IV ONCE PRN Pseudoephedrine HCl (Sudafed 12 Hour*) 120 mg PO QPM SANDI Tramadol HCl (Ultram*) 50 mg PO Q6H PRN Vital Signs: Temp Pulse Resp BP Pulse Ox 98.4 F 96 14 145/75 94 12/04/18 11:10 12/04/18 13:03 12/04/18 13:03 12/04/18 13:03 12/04/18 13:03 Oxygen Devices in Use Now: Nasal Cannula Appearance: Pt is sitting up in bed. She is diaphoretic and has an emesis basin on her lap. Ears/Nose/Mouth/Throat: NL Teeth, Lips, Gums, Clear Oropharnyx, Mucous Membranes Moist Neck: NL Appearance and Movements; NL JVP, Trachea Midline Respiratory: Symmetrical Chest Expansion and Respiratory Effort, Clear to Auscultation Cardiovascular: NL Sounds; No Murmurs; No JVD, RRR Abdominal: NL Sounds; No Tenderness; No Distention, No Hepatosplenomegaly Extremities: No Clubbing, Cyanosis, - - RLE with CDI dressing at mota and distal foot. B/l calves nontender to palpation. Skin: No Rash or Ulcers, - - Diaphoretic, warm, and moist Neurological: Alert and Oriented x 3 Result Diagrams: 12/05/18 05:31 12/05/18 05:26 Additional Lab and Data: Lab Results 12/03/18 12/03/18 Range/Units 11:46 11:46 WBC 12.0 H (3.5-10.8) 10^3/ul RBC 5.08 (4.00-5.40) 10^6/ul Hgb 15.8 (12.0-16.0) g/dl Hct 46 (35-47) % MCV 90 (80-97) fL MCH 31 (27-31) pg MCHC 35 (31-36) g/dl RDW 12 (10.5-15) % Plt Count 301 (150-450) 10^3/ul MPV 9.8 (7.4-10.4) fL Neut % (Auto) 72.8 % Lymph % (Auto) 19.4 % [place]field % (Auto) 5.4 % Eos % (Auto) 1.9 % Baso % (Auto) 0.5 % Absolute Neuts (auto) 8.8 H (1.5-7.7) 10^3/ul Absolute Lymphs (auto) 2.3 (1.0-4.8) 10^3/ul Absolute Monos (auto) 0.6 (0-0.8) 10^3/ul Absolute Eos (auto) 0.2 (0-0.6) 10^3/ul Absolute Basos (auto) 0.1 (0-0.2) 10^3/ul Absolute Nucleated RBC 0 10^3/ul Nucleated RBC % 0 ESR Pending Sodium 133 L (135-145) mmol/L Potassium 4.1 (3.5-5.0) mmol/L Chloride 103 (101-111) mmol/L Carbon Dioxide 22 (22-32) mmol/L Anion Gap 8 (2-11) mmol/L BUN 12 (6-24) mg/dL Creatinine 0.63 (0.51-0.95) mg/dL Est GFR ( Amer) 122.0 (>60) Est GFR (Non-Af Amer) 100.9 (>60) BUN/Creatinine Ratio 19.0 (8-20) Glucose 291 H (70-100) mg/dL Calcium 9.4 (8.6-10.3) mg/dL C-Reactive Protein 15.78 H (<8.01) mg/L Assess/Plan/Problems-Billing Assessment: Pt is a 48yof with no reported PMHx who presents with nonhealing wound of RLE, osteomyelitis of 3rd digit of RLE, new onset DM, and PAD. - Patient Problems (1) Osteomyelitis Comment: -R third toe ulcer debrided today; PT ordered -Ortho consult ordered -Await cultures -Continue vanco, ceftriaxone (2) Nonhealing nonsurgical wound Comment: -I&D of R mota abscess today -Await cultures -Continue to monitor with surg, IR (3) Peripheral artery disease Comment: -ANANT results suggest severe PAD -IR recommends revascularization; spoke with Josie today, who states that this may be done outpatient, depending on results of treatment, but must be done within 2 weeks (4) Nausea & vomiting Comment: -Pt has n/v today, s/p surgical debridement of toe and mota wounds -Ordered Compazine, Scopalamine patch; continue zofran -D/c opiates -Ketorolac ordered (5) Diabetes Comment: -Diabetic education -Nutritional consult -Metformin 500 BID; added to SS lipso -Continue to monitor AC FS (6) DVT prophylaxis Comment: -Suzyx (7) Full code status Status and Disposition: Inpatient. Discharge when stable.
[2018-12-04] MEDS ORDERED: NS 0.9% 50 ML* 50 ML ONE (15:44)
[2018-12-04] MEDS: cefTRIAXone(*) 1 GM in NS 0.9% 50 ML* 50 ML IVPB SCH (15:50)
[2018-12-04] MEDS ORDERED: Vancomycin Trough Check NOTE FOLLOW UP ONE (16:00)
[2018-12-04] MEDS ORDERED: metFORMIN* 500 MG TAB PO SCH (17:00)
[2018-12-04] MEDS ORDERED: PROCHLORPERAZINE INJ 5 MG/ML 2 ML VIAL ONE (17:29)
[2018-12-04] MEDS ORDERED: Scopolamine 1.5 mg* PATCH TRANSDERM PRN (17:39)
[2018-12-04] MEDS ORDERED: Ketorolac INJ* 30 MG/ML 1 ML VIAL IV PUSH PRN (17:45)
[2018-12-04] MEDS: Enoxaparin(*) 40 MG/0.4 ML SYR SUBCUT SCH (18:44)
[2018-12-04] MEDS: Pseudoephedrine HCL ER TAB* 120 MG PO SCH (19:00)
[2018-12-04] MEDS: CMCS: LoraTADine TAB(NF) 10 MG TAB (AUTOSUB to CETIRIZINE) PO SCH (19:00)
[2018-12-04] MEDS: Vancomycin(*) 1,000 MG in NS 0.9% 250 ML* 250 ML IVPB SCH (23:21)
[2018-12-05] MEDS: traMADol TAB* 50 MG PO PRN ×3 (05:25→21:52)
[2018-12-05] MEDS: Vancomycin(*) 1,000 MG in NS 0.9% 250 ML* 250 ML IVPB SCH ×4 (05:26→23:33)
[2018-12-05 05:43] LABS: ABS Basophils 0.1 10^3/ul (0-0.2); ABS Eosinophils 0.2 10^3/ul (0-0.6); ABS Lymphocytes 2.3 10^3/ul (1.0-4.8); ABS Monocytes 0.7 10^3/ul (0-0.8); ABS Neutrophils 8.1 10^3/ul (1.5-7.7); ABS Nucleated RBC 0 10^3/ul; Eosinophil % 1.3 %; Hematocrit 41 % (35-47); Hemoglobin 14.2 g/dl (12.0-16.0); Lymphocyte % 20.3 %; Mean Corpuscular HGB Conc 35 g/dl (31-36); Mean Corpuscular Hemoglobin 31 pg (27-31); Mean Corpuscular Volume 91 fL (80-97); Mean Platelet Volume 9.3 fL (7.4-10.4); Nucleated Red Blood Cells % 0.1; Platelet Count 238 10^3/ul (150-450); Red Blood Count 4.53 10^6/ul (4.00-5.40); Red Cell Distribution Width 13 % (10.5-15); White Blood Count 11.4 10^3/ul (3.5-10.8)
[2018-12-05 05:58] LABS: Albumin 3.3 g/dL (3.2-5.2); BUN/Creatinine Ratio 24.5 (8-20); Calcium 9.1 mg/dL (8.6-10.3); EGFR African American 163.1 (>60); EGFR Non-African American 134.8 (>60); Globulin 3.2 g/dL (2-4); Potassium 3.6 mmol/L (3.5-5.0); Total Bilirubin 0.6 mg/dL (0.2-1.0); Total Protein 6.5 g/dL (6.4-8.9)
[2018-12-05] MEDS: Lactated Ringers 1000 ML Bag* 1,000 ML IV SCH (08:00)
--- NOTE | 2018-12-05 09:17 | PN ---
Subjective Date of Service: 12/05/18 Interval History: Pt states that pain in R leg is 4/10. She states she is dealing with the pain well. She denies n/v since last night around 1730. She ate ice cream around 2330, and then was NPO after midnight for US. She has had both Toradol and Tramadol, and appears to have tolerated both well, although she has yet to have breakfast. She denies CP , SOB, cough, fever/chills, abd pain, n/v/d/c, pain in extremities , calf tenderness. Objective Active Medications: Acetaminophen (Tylenol Tab*) 650 mg PO Q4H PRN Dextrose (D50w Syringe 50 Ml*) 12.5 gm IV PUSH .FOR FS < 60 - SS PRN Enoxaparin Sodium (Lovenox(*)) 40 mg SUBCUT Q24H [facility] Ceftriaxone Sodium 1 gm/ (Sodium Chloride) 50 mls @ 200 mls/hr IVPB Q24H [facility] Lactated Ringer's (Lactated Ringers 1000 Ml Bag*) 1,000 mls @ 125 mls/hr IV PER RATE [facility] Vancomycin HCl 1,000 mg/ (Sodium Chloride) 250 mls @ 166.667 mls/hr IVPB Q6H [facility] Ibuprofen (Motrin Tab*) 800 mg PO Q6H PRN Insulin Human Lispro (Humalog*) 0 units SUBCUT ACHS [facility]; Protocol Ketorolac Tromethamine (Toradol Inj*) 30 mg IV PUSH Q6H PRN Loratadine (Claritin Tab(Nf)) 10 mg PO 1800 [facility] Metformin HCl (Glucophage*) 500 mg PO 0800,1700 [facility] Pharmacy Consult (Vancomycin Per Pharmacy*) 1 note FOLLOW UP .VANC PER PHARMACY [facility] Pharmacy Profile Note (Vancomycin Trough Check) 1 note FOLLOW UP 1100 ONE Prochlorperazine Edisylate (Compazine Inj*) 5 mg IV Q6H PRN Pseudoephedrine HCl (Sudafed 12 Hour*) 120 mg PO QPM [facility] Scopolamine (Transderm-Scop 1.5 Mg Patch*) 1 patch TRANSDERM Q72H PRN Tramadol HCl (Ultram*) 50 mg PO Q6H PRN Vital Signs: Temp Pulse Resp BP Pulse Ox 98.5 F 86 18 129/58 93 12/05/18 03:28 12/05/18 03:28 12/05/18 05:25 12/05/18 03:28 12/05/18 03:28 Oxygen Devices in Use Now: Nasal Cannula Appearance: Pt is sitting up in bed with RLE elevated. She is in no acute distress and appears well. Eyes: No Scleral Icterus, PERRLA Ears/Nose/Mouth/Throat: NL Teeth, Lips, Gums, Clear Oropharnyx, Mucous Membranes Moist Neck: NL Appearance and Movements; NL JVP, Trachea Midline, No Thyroid Enlargement, Masses Respiratory: Symmetrical Chest Expansion and Respiratory Effort, Clear to Auscultation Cardiovascular: NL Sounds; No Murmurs; No JVD, RRR Abdominal: NL Sounds; No Tenderness; No Distention, No Hepatosplenomegaly Lymphatic: No Cervical Adenopathy Extremities: No Clubbing, Cyanosis, - - LLE WNL. R mota, R distal foot bandaged ; dressing is CDI. Pedal pulses not palpable. Neurological: Alert and Oriented x 3 Result Diagrams: 12/05/18 05:31 12/05/18 05:26 Additional Lab and Data: Lab Results 12/03/18 12/03/18 Range/Units 11:46 11:46 WBC 12.0 H (3.5-10.8) 10^3/ul RBC 5.08 (4.00-5.40) 10^6/ul Hgb 15.8 (12.0-16.0) g/dl Hct 46 (35-47) % MCV 90 (80-97) fL MCH 31 (27-31) pg MCHC 35 (31-36) g/dl RDW 12 (10.5-15) % Plt Count 301 (150-450) 10^3/ul MPV 9.8 (7.4-10.4) fL Neut % (Auto) 72.8 % Lymph % (Auto) 19.4 % Kinney % (Auto) 5.4 % Eos % (Auto) 1.9 % Baso % (Auto) 0.5 % Absolute Neuts (auto) 8.8 H (1.5-7.7) 10^3/ul Absolute Lymphs (auto) 2.3 (1.0-4.8) 10^3/ul Absolute Monos (auto) 0.6 (0-0.8) 10^3/ul Absolute Eos (auto) 0.2 (0-0.6) 10^3/ul Absolute Basos (auto) 0.1 (0-0.2) 10^3/ul Absolute Nucleated RBC 0 10^3/ul Nucleated RBC % 0 ESR Pending Sodium 133 L (135-145) mmol/L Potassium 4.1 (3.5-5.0) mmol/L Chloride 103 (101-111) mmol/L Carbon Dioxide 22 (22-32) mmol/L Anion Gap 8 (2-11) mmol/L BUN 12 (6-24) mg/dL Creatinine 0.63 (0.51-0.95) mg/dL Est GFR ( Amer) 122.0 (>60) Est GFR (Non-Af Amer) 100.9 (>60) BUN/Creatinine Ratio 19.0 (8-20) Glucose 291 H (70-100) mg/dL Calcium 9.4 (8.6-10.3) mg/dL C-Reactive Protein 15.78 H (<8.01) mg/L Microbiology and Other Data: Microbiology 12/03/18 20:51 Aerobic Blood Culture - Preliminary Blood Venous No Growth Day 1 Anaerobic Blood Culture - Preliminary No Growth Day 1 12/03/18 17:09 Aerobic Blood Culture - Preliminary Blood Venous No Growth Day 1 Anaerobic Blood Culture - Preliminary No Growth Day 1 12/04/18 11:00 Skin and Soft Tissue MRSA/MSSA (PCR - Final Toe Mrsa Negative S.aureus Negative Gram Stain - Final 12/04/18 11:00 Skin and Soft Tissue MRSA/MSSA (PCR - Final Leg Right Mrsa Negative S.aureus Negative Gram Stain - Final Assess/Plan/Problems-Billing Assessment: Pt is a 48yof with no reported PMHx who presents with nonhealing wound of RLE, osteomyelitis of 3rd digit of RLE, new onset DM, and PAD. - Patient Problems (1) Osteomyelitis Comment: -R third toe ulcer debrided yesterday; PT ordered -Ortho consult ordered -ID suggests continue vanco, ceftriaxone and await cultures (2) Nonhealing nonsurgical wound Comment: -Wound vac started today -Await cultures -Continue to monitor with surg, IR (3) Peripheral artery disease Comment: -ANANT results suggest severe PAD -Awaiting results of US -IR recommends revascularization at outpatient; please follow up within 1 week d /c (4) Hypertension Comment: -Pt appears to be hypertensive, despite reporting adequate pain control -Metoprolol 12.5 bid with hold parameters -Continue to monitor (5) Nausea & vomiting Comment: -N/v appears to be resolved; likely due to opiates -Continue PRN nausea medication -Ketorolac ordered -D/c opiates (6) Diabetes Comment: -Diabetic education, nutritional consult -Metformin 500 BID starting today; continue SS lipso -Continue to monitor AC FS (7) DVT prophylaxis Comment: -Lovenox (8) Full code status Status and Disposition: Inpatient. Discharge when stable.
[2018-12-05] MEDS ORDERED: Lactated Ringers 1000 ML Bag* 1,000 ML IV SCH (09:18)
--- NOTE | 2018-12-05 10:10 | PN ---
Progress Note - Progress Note Date of Service: 12/05/18 SOAP: Subjective: Hungry Pain in right leg slightly improved Objective: Temp Pulse Resp BP Pulse Ox 98.5 F 86 18 129/58 93 12/05/18 03:28 12/05/18 03:28 12/05/18 05:25 12/05/18 03:28 12/05/18 03:28 PEX: Right mota abscess/ulcer site clean and pink-no odor or purulence. Some surrounding erythema Right 3rd toe open ulcer with exposed bone. Some seropurulent drainage. No swelling. Edema decreased in right ankle and foot Assessment: Ulcer/Abscess right mota s/p I and D and debridement Right third toe with ulcer and presumed osteo PVD by US DM-new diagnosis Tobacco abuse Plan: Wound vac applied to mota ulcer Wound care to 3rd toe IV abx Await cultures ID consult Ortho consult Vascular IR consult-discussed with Dr. Galindo
[2018-12-05] MEDS: metFORMIN* 500 MG TAB PO SCH ×2 (10:50→16:22)
[2018-12-05] MEDS: Insulin LISPRO* 1 UNITS UNIT SUBCUT SCH ×4 (10:50→21:52)
[2018-12-05] MEDS ORDERED: Vancomycin Trough Check NOTE FOLLOW UP ONE (11:00)
--- NOTE | 2018-12-05 12:45 | CONS ---
CONSULTATION REPORT: DATE OF CONSULT: 12/05/18 REQUESTING PHYSICIAN: Dr. Simon. CONSULTING SERVICE: Infectious Disease. REASON FOR CONSULT: Right leg wound and right toe infection. IMPRESSION: 1. Necrotizing soft tissue infection, right lower anterior leg, status post debridement down to fascia, which was healthy. Gram stain from that procedure shows gram-positive cocci. The Staph aureus PCR was negative. The culture is pending. 2. Right third toe chronic nonhealing non-pressure related wound, debridement done to bone. MRI shows osteomyelitis. The Gram stain from unroofing the eschar yesterday shows gram-positive cocci and gram-positive bacilli. 3. New diagnosis of type 2 diabetes mellitus. A1c here is 9 plus. 4. Peripheral vascular disease. 5. Tobacco abuse, in brief remission. 6. PENICILLIN allergy, which caused hives and lip swelling. RECOMMENDATIONS: Continue vancomycin and ceftriaxone, which she is tolerating well, and we will await the wound cultures. She will need a lengthy course of IV antibiotics for the toe infection, which we could arrange at [facility]. HISTORY OF PRESENT ILLNESS: This is a 48-year-old woman with vascular disease, undiagnosed diabetes until now, admitted with a right leg infection. A few weeks ago, a power snailer mishap led to a wound on her dorsal surface of the right third toe. She has been putting various salves on it to no avail. The right leg wound developed after a pinhole that kept getting bigger and bigger a couple of weeks ago. It was painful. There was a large scab. Because of those issues, she saw Dr. Simon [facility], who admitted her to the hospital on 12/03/18. MRI findings showed osteomyelitis of the right third toe and a large abscess under the eschar on the right leg. He took her to the operating room yesterday for incision and debridement of both sites, which she tolerated well. He is going to place a VAC dressing on her this morning. At rest, she does not have any pain, but with moving around and manipulating the dressing, she is quite tender. She has had no fevers here. PAST MEDICAL HISTORY: 1. Type 2 diabetes mellitus (diagnosed here). 2. Peripheral vascular disease. 3. Tobacco abuse. PAST SURGICAL HISTORY: 1. History of . 2. L5-S1 decompression. 3. Cervical spine surgery with fixation. 4. Status post hysterectomy. ALLERGIES: CONTRAST DYE caused numbness, PENICILLIN and SULFA caused swelling and hives. MEDICATIONS: 1. Tylenol. 2. Enoxaparin. 3. Ibuprofen as needed. 4. Ketorolac. 5. Metformin. 6. Pseudoephedrine. 7. Ceftriaxone 1 g daily. 8. Scopolamine patch. 9. Vancomycin 1 g IV every 6 hours. SOCIAL HISTORY: She lives in [place] with her family. She is a smoker. 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 FAMILY HISTORY: Father from lung cancer. Mother is alive and healthy. REVIEW OF SYSTEMS: A 14-point review is all negative except as noted above in the history of present illness. PHYSICAL EXAM: Vital Signs: Temperature 37, heart rate 80, respiratory rate 16 , blood pressure 130/60, oxygen saturation 93% on room air. In general, she is awake, not in distress. Neurologic: She is oriented x3. Follows all commands. HEENT: There is no conjunctival hemorrhage. Oropharynx without lesions. Neck is supple without mass. Heart is regular rate and rhythm without murmurs, rubs, or gallops. Lungs are clear to auscultation bilaterally. Abdomen: Soft, nontender, nondistended. There are bowel sounds present. Skin: There is no rash or splinter hemorrhage. Musculoskeletal: There is no spine tenderness to palpation. Right lower anterior leg, there is about a 6 cm , open, well-demarcated wound with exposed muscle and tendon. There is no necrotic tissue left. There is surrounding rim of erythema. The right third toe, there is a dorsal surface wound of about a centimeter, which is irregular with underlying granulation tissue. LABORATORY DATA: Creatinine 0.49. CRP was 15 at admission. White blood cell count 11, hemoglobin 14, platelets 238. Please see impressions and recommendations outlined above, which I have discussed with Dr. Simon. Thanks for asking me to see Dina in consultation. [id number]/[facility] #: [id number] RIGO
--- NOTE | 2018-12-05 13:54 | PN ---
Progress Note - Progress Note Date of Service: 12/05/18 SOAP: Subjective: Resting in bed with at side. Patient without significant pain now that wound vac is applied. Objective: Laboratory Tests 12/03/18 12/04/18 12/05/18 11:46 06:33 05:26 WBC 12.0 H 10.4 BUN 12 Creatinine 0.49 L Est GFR ( Amer) 163.1 Est GFR (Non-Af Amer) 134.8 12/05/18 05:31 WBC 11.4 H BUN Creatinine Est GFR ( Amer) Est GFR (Non-Af Amer) Selected Entries 12/05/18 12/05/18 10:20 10:50 Temperature 98.0 F Temperature Oral Source Pulse Rate 88 Respiratory 16 Rate Blood Pressure 157/61 (mmHg) Blood Pressure 84 Mean O2 Sat by Pulse 96 Oximetry Patient on Room Yes Air NAD, AAO x 3 No pulses palpable at B/L LAST CODE STRIPER Assessment: 48 YOF with right leg critical limb ischemia discovered to have bilateral JEFFY/ EIA arterial occlusion on arterial duplex. I reviewed today's ultrasound images with the patient and her and told them it is feasible to try to revascularize her occluded iliac arteries percutaneously from the bilateral common femoral arteries. If we can cross the occlusions then she will most likely have the occluded arteries stented. Revascularization will greatly aid her left leg wounds and potentially obviate right toe amputation. Plan: 1. The patient seems to be stable s/p right anterior leg I&D, wound vac application and antibiotic therapy. The angiographic procedure can be done as an outpatient. I will try to get her on the schedule within a week. 2. Continue antibiotic therapy and wound care. 3. Patient again encouraged to stop smoking and to engage in diabetes care.
[2018-12-05] MEDS: Ibuprofen TAB* 800 MG PO PRN (13:59)
[2018-12-05] MEDS ORDERED: Magnesium Hydroxide LIQ* 30 ML UDC PO PRN (14:07)
--- NOTE | 2018-12-05 15:17 | CONSULT ---
Consult Consult: Orthopedic Consultation: CC: Right third toe chronic ulcer and right anterior lower leg wound and possible need for 3rd toe amputation HPI: Augusta is a 48 year old female with no significant know past medical history who was admitted from wound care center for non healing wounds right leg and right 3rd toe. She was found on admission to have elevated A1C >9 and evidence of PVD. Workup with MRI and consultation with IR, Dr. Galindo has indicated evidence of osteomyelitis of the third toe and occlusion bilateral common and external iliac arteries. She has had wound debridement of both by Dr. Simon on 12/04/18. She had a wound vac placed on the leg wound today and dressing change at the toe. She has been seen as well by Dr. Green and IV Vanco and Ceftriaxone are ordered. Her pain is well managed overall and feels better with the wound vac now placed. Acetaminophen (Tylenol Tab*) 650 mg PO Q4H PRN PRN Reason: FEVER/PAIN Last Admin: 12/03/18 23:46 Dose: 650 mg Dextrose (D50w Syringe 50 Ml*) 12.5 gm IV PUSH .FOR FS < 60 - SS PRN PRN Reason: FS < 60 Docusate Sodium (Colace Cap*) 100 mg PO BID [facility] Enoxaparin Sodium (Lovenox(*)) 40 mg SUBCUT Q24H [facility] Last Admin: 12/04/18 18:44 Dose: 40 mg Ceftriaxone Sodium 1 gm/ (Sodium Chloride) 50 mls @ 200 mls/hr IVPB Q24H [facility] Last Admin: 12/04/18 15:50 Dose: 200 mls/hr Vancomycin HCl 1,000 mg/ (Sodium Chloride) 250 mls @ 166.667 mls/hr IVPB Q6H [facility] Last Admin: 12/05/18 12:39 Dose: 166.667 mls/hr Ibuprofen (Motrin Tab*) 800 mg PO Q6H PRN PRN Reason: PAIN Last Admin: 12/05/18 13:59 Dose: 800 mg Insulin Human Lispro (Humalog*) 0 units SUBCUT ACHS [facility]; Protocol Last Admin: 12/05/18 13:57 Dose: 4 units Ketorolac Tromethamine (Toradol Inj*) 30 mg IV PUSH Q6H PRN PRN Reason: PAIN Last Admin: 12/05/18 00:17 Dose: 30 mg Loratadine (Claritin Tab(Nf)) 10 mg PO 1800 [facility] Last Admin: 12/04/18 19:00 Dose: Not Given Magnesium Hydroxide (Milk Of Magnpooja Liq*) 30 ml PO Q12H PRN PRN Reason: CONSTIPATION Metformin HCl (Glucophage*) 500 mg PO 0800,1700 [facility] Last Admin: 12/05/18 10:50 Dose: 500 mg Pharmacy Consult (Vancomycin Per Pharmacy*) 1 note FOLLOW UP .VANC PER PHARMACY [facility] Pharmacy Profile Note (Vancomycin Trough Check) 1 note FOLLOW UP ONCE ONE Stop: 12/08/18 05:01 Prochlorperazine Edisylate (Compazine Inj*) 5 mg IV Q6H PRN PRN Reason: NAUSEA/VOMITING Last Admin: 12/04/18 17:30 Dose: 5 mg Pseudoephedrine HCl (Sudafed 12 Hour*) 120 mg PO QPM [facility] Last Admin: 12/04/18 19:00 Dose: Not Given Scopolamine (Transderm-Scop 1.5 Mg Patch*) 1 patch TRANSDERM Q72H PRN PRN Reason: NAUSEA/VOMITING Tramadol HCl (Ultram*) 50 mg PO Q6H PRN PRN Reason: moderate pain Last Admin: 12/05/18 10:50 Dose: 50 mg Vital Signs Temp 98.0 F 12/05/18 10:20 Pulse 88 12/05/18 10:20 Resp 16 12/05/18 10:50 BP 157/61 12/05/18 10:20 Pulse Ox 96 12/05/18 10:20 Intake & Output 12/04/18 12/05/18 12/05/18 18:59 06:59 18:59 Intake Total 1100 1345 2153 Output Total 300 1200 650 Balance 313 697 6491 Intake: IV Fluids 913 614 6906 LR 975 1200 lr 800 IVPB 300 250 503 ABX - VANCOMYCIN 300 250 503 Oral 0 120 450 Output: Urine 300 1200 650 Laboratory Results - last 24 hr 12/04/18 12/04/18 12/04/18 15:44 16:59 21:08 WBC RBC Hgb Hct MCV MCH MCHC RDW Plt Count MPV Neut % (Auto) Lymph % (Auto) Emanuel % (Auto) Eos % (Auto) Baso % (Auto) Absolute Neuts (auto) Absolute Lymphs (auto) Absolute Monos (auto) Absolute Eos (auto) Absolute Basos (auto) Absolute Nucleated RBC Nucleated RBC % Sodium Potassium Chloride Carbon Dioxide Anion Gap BUN Creatinine Est GFR ( Amer) Est GFR (Non-Af Amer) BUN/Creatinine Ratio Glucose POC Glucose (mg/dL) 129 H 228 H Hemoglobin A1c Calcium Total Bilirubin AST ALT Alkaline Phosphatase Total Protein Albumin Globulin Albumin/Globulin Ratio Vancomycin Trough 7.0 12/05/18 12/05/18 12/05/18 05:26 05:31 05:31 WBC 11.4 H RBC 4.53 Hgb 14.2 Hct 41 MCV 91 MCH 31 MCHC 35 RDW 13 Plt Count 238 MPV 9.3 Neut % (Auto) 71.5 Lymph % (Auto) 20.3 Emanuel % (Auto) 6.2 Eos % (Auto) 1.3 Baso % (Auto) 0.7 Absolute Neuts (auto) 8.1 H Absolute Lymphs (auto) 2.3 Absolute Monos (auto) 0.7 Absolute Eos (auto) 0.2 Absolute Basos (auto) 0.1 Absolute Nucleated RBC 0 Nucleated RBC % 0.1 Sodium 136 Potassium 3.6 Chloride 103 Carbon Dioxide 28 Anion Gap 5 BUN 12 Creatinine 0.49 L Est GFR ( Amer) 163.1 Est GFR (Non-Af Amer) 134.8 BUN/Creatinine Ratio 24.5 H Glucose 162 H POC Glucose (mg/dL) Hemoglobin A1c 9.5 H Calcium 9.1 Total Bilirubin 0.60 AST 18 ALT 20 Alkaline Phosphatase 59 Total Protein 6.5 Albumin 3.3 Globulin 3.2 Albumin/Globulin Ratio 1.0 Vancomycin Trough 12/05/18 12/05/18 12/05/18 09:08 10:57 12:23 WBC RBC Hgb Hct MCV MCH MCHC RDW Plt Count MPV Neut % (Auto) Lymph % (Auto) Emanuel % (Auto) Eos % (Auto) Baso % (Auto) Absolute Neuts (auto) Absolute Lymphs (auto) Absolute Monos (auto) Absolute Eos (auto) Absolute Basos (auto) Absolute Nucleated RBC Nucleated RBC % Sodium Potassium Chloride Carbon Dioxide Anion Gap BUN Creatinine Est GFR ( Amer) Est GFR (Non-Af Amer) BUN/Creatinine Ratio Glucose POC Glucose (mg/dL) 150 H 238 H Hemoglobin A1c Calcium Total Bilirubin AST ALT Alkaline Phosphatase Total Protein Albumin Globulin Albumin/Globulin Ratio Vancomycin Trough 13.2 Microbiology 12/04/18 11:00 Skin and Soft Tissue MRSA/MSSA (PCR - Final Leg Right Mrsa Negative S.aureus Negative Gram Stain - Final Wound Culture - Preliminary Strep Agalactiae - (Group B) 12/04/18 11:00 Anaerobic Culture - Preliminary Wound - Right Third 12/04/18 11:00 Anaerobic Culture - Preliminary Wound - Right Leg 12/03/18 20:51 Aerobic Blood Culture - Preliminary Blood Venous No Growth Day 1 Anaerobic Blood Culture - Preliminary No Growth Day 1 12/03/18 17:09 Aerobic Blood Culture - Preliminary Blood Venous No Growth Day 1 Anaerobic Blood Culture - Preliminary No Growth Day 1 12/04/18 11:00 Skin and Soft Tissue MRSA/MSSA (PCR - Final Toe Mrsa Negative S.aureus Negative Gram Stain - Final right lower leg wound vac placed right 3rd toe ulcer , pea sized, with exposed bone at the distal phalanx dorsally without purulent drainage or odor, tenderness diffusely at tip of toe, no gross erythema, mild edema A: Right lower extremity chronic ulcer right 3rd toe with probable osteomyelitis Right anterior lower leg wound s/p I&D with wound vac placement P: She will continue with IV antibiotics as outlined by Dr. Norma Galindo feels that with outpatient revascularization she may be able to heal the wounds and clear infection-scheduled for this week Will follow loosely, may follow up in office with Dr. Greenfield or Dr. Mosqueda in clinic to monitor wound healing.
[2018-12-05] MEDS: cefTRIAXone(*) 1 GM in NS 0.9% 50 ML* 50 ML IVPB SCH (16:21)
[2018-12-05] MEDS: Docusate CAP* 100 MG PO SCH ×2 (16:22→21:40)
[2018-12-05] MEDS: Enoxaparin(*) 40 MG/0.4 ML SYR SUBCUT SCH (17:51)
[2018-12-05] MEDS ORDERED: Metoprolol Tartrate TAB* 25 MG PO SCH (21:00)
[2018-12-05] MEDS: Metoprolol Tartrate TAB* 25 MG PO SCH (21:39)
[2018-12-05] MEDS: CMCS: LoraTADine TAB(NF) 10 MG TAB (AUTOSUB to CETIRIZINE) PO SCH (21:39)
[2018-12-05] MEDS: Pseudoephedrine HCL ER TAB* 120 MG PO SCH (21:39)
[2018-12-06] MEDS: Ibuprofen TAB* 800 MG PO PRN ×2 (05:06→15:40)
[2018-12-06] MEDS: Vancomycin(*) 1,000 MG in NS 0.9% 250 ML* 250 ML IVPB SCH ×4 (05:09→23:34)
[2018-12-06] MEDS: Metoprolol Tartrate TAB* 25 MG PO SCH ×2 (08:43→21:54)
[2018-12-06] MEDS: metFORMIN* 500 MG TAB PO SCH ×2 (08:43→17:48)
[2018-12-06] MEDS: Insulin LISPRO* 1 UNITS UNIT SUBCUT SCH ×4 (08:44→22:57)
[2018-12-06] MEDS: Docusate CAP* 100 MG PO SCH ×2 (08:45→22:57)
[2018-12-06] MEDS: cefTRIAXone(*) 1 GM in NS 0.9% 50 ML* 50 ML IVPB SCH (15:40)
--- NOTE | 2018-12-06 16:14 | PN ---
Subjective Date of Service: 12/06/18 Interval History: Patient seen and examined. Feeling well, has some pain to right mota, but otherwise denies fevers or chills, no SOB, no chest pain or headaches. Trying to watch her meals closely in light of new diabetes. Objective Active Medications: Acetaminophen (Tylenol Tab*) 650 mg PO Q4H PRN PRN Reason: FEVER/PAIN Last Admin: 12/03/18 23:46 Dose: 650 mg Dextrose (D50w Syringe 50 Ml*) 12.5 gm IV PUSH .FOR FS < 60 - SS PRN PRN Reason: FS < 60 Docusate Sodium (Colace Cap*) 100 mg PO BID [facility] Last Admin: 12/06/18 08:45 Dose: Not Given Enoxaparin Sodium (Lovenox(*)) 40 mg SUBCUT Q24H [facility] Last Admin: 12/05/18 17:51 Dose: 40 mg Ceftriaxone Sodium 1 gm/ (Sodium Chloride) 50 mls @ 200 mls/hr IVPB Q24H [facility] Last Admin: 12/06/18 15:40 Dose: 200 mls/hr Vancomycin HCl 1,000 mg/ (Sodium Chloride) 250 mls @ 166.667 mls/hr IVPB Q6H [facility] Last Admin: 12/06/18 11:56 Dose: 166.667 mls/hr Ibuprofen (Motrin Tab*) 800 mg PO Q6H PRN PRN Reason: PAIN Last Admin: 12/06/18 15:40 Dose: 800 mg Insulin Human Lispro (Humalog*) 0 units SUBCUT [facility]; Protocol Last Admin: 12/06/18 12:44 Dose: 1 units Ketorolac Tromethamine (Toradol Inj*) 30 mg IV PUSH Q6H PRN PRN Reason: PAIN Last Admin: 12/05/18 00:17 Dose: 30 mg Loratadine (Claritin Tab(Nf)) 10 mg PO 1800 [facility] Last Admin: 12/05/18 21:39 Dose: 10 mg Magnesium Hydroxide (Milk Of Magnesia Liq*) 30 ml PO Q12H PRN PRN Reason: CONSTIPATION Metformin HCl (Glucophage*) 500 mg PO 0800,1700 [facility] Last Admin: 12/06/18 08:43 Dose: 500 mg Metoprolol Tartrate (Lopressor Tab*) 12.5 mg PO Q12HR [facility] Last Admin: 12/06/18 08:43 Dose: 12.5 mg Pharmacy Consult (Vancomycin Per Pharmacy*) 1 note FOLLOW UP .VANC PER PHARMACY [facility] Pharmacy Profile Note (Vancomycin Trough Check) 1 note FOLLOW UP ONCE ONE Stop: 12/08/18 05:01 Prochlorperazine Edisylate (Compazine Inj*) 5 mg IV Q6H PRN PRN Reason: NAUSEA/VOMITING Last Admin: 12/04/18 17:30 Dose: 5 mg Pseudoephedrine HCl (Sudafed 12 Hour*) 120 mg PO QPM [facility] Last Admin: 12/05/18 21:39 Dose: 120 mg Scopolamine (Transderm-Scop 1.5 Mg Patch*) 1 patch TRANSDERM Q72H PRN PRN Reason: NAUSEA/VOMITING Tramadol HCl (Ultram*) 50 mg PO Q6H PRN PRN Reason: moderate pain Last Admin: 12/05/18 21:52 Dose: 50 mg Oxygen Devices in Use Now: None Appearance: alert, NAD Eyes: No Scleral Icterus, PERRLA Ears/Nose/Mouth/Throat: NL Teeth, Lips, Gums, Mucous Membranes Moist Neck: NL Appearance and Movements; NL JVP, Trachea Midline Respiratory: Symmetrical Chest Expansion and Respiratory Effort, Clear to Auscultation Cardiovascular: NL Sounds; No Murmurs; No JVD, RRR, No Edema Abdominal: NL Sounds; No Tenderness; No Distention Extremities: No Clubbing, Cyanosis, - - wound vac right mota with erythema, dressing to right third toe, no drainage Neurological: Alert and Oriented x 3, NL Sensation, NL Muscle Strength and Tone Nutrition: Taking PO's Result Diagrams: 12/05/18 05:31 12/05/18 05:26 Additional Lab and Data: Lab Results 12/03/18 12/03/18 Range/Units 11:46 11:46 WBC 12.0 H (3.5-10.8) 10^3/ul RBC 5.08 (4.00-5.40) 10^6/ul Hgb 15.8 (12.0-16.0) g/dl Hct 46 (35-47) % MCV 90 (80-97) fL MCH 31 (27-31) pg MCHC 35 (31-36) g/dl RDW 12 (10.5-15) % Plt Count 301 (150-450) 10^3/ul MPV 9.8 (7.4-10.4) fL Neut % (Auto) 72.8 % Lymph % (Auto) 19.4 % [place] % (Auto) 5.4 % Eos % (Auto) 1.9 % Baso % (Auto) 0.5 % Absolute Neuts (auto) 8.8 H (1.5-7.7) 10^3/ul Absolute Lymphs (auto) 2.3 (1.0-4.8) 10^3/ul Absolute Monos (auto) 0.6 (0-0.8) 10^3/ul Absolute Eos (auto) 0.2 (0-0.6) 10^3/ul Absolute Basos (auto) 0.1 (0-0.2) 10^3/ul Absolute Nucleated RBC 0 10^3/ul Nucleated RBC % 0 ESR Pending Sodium 133 L (135-145) mmol/L Potassium 4.1 (3.5-5.0) mmol/L Chloride 103 (101-111) mmol/L Carbon Dioxide 22 (22-32) mmol/L Anion Gap 8 (2-11) mmol/L BUN 12 (6-24) mg/dL Creatinine 0.63 (0.51-0.95) mg/dL Est GFR ( Amer) 122.0 (>60) Est GFR (Non-Af Amer) 100.9 (>60) BUN/Creatinine Ratio 19.0 (8-20) Glucose 291 H (70-100) mg/dL Calcium 9.4 (8.6-10.3) mg/dL C-Reactive Protein 15.78 H (<8.01) mg/L Microbiology and Other Data: Microbiology 12/03/18 20:51 Aerobic Blood Culture - Preliminary Blood Venous No Growth Day 1 Anaerobic Blood Culture - Preliminary No Growth Day 1 12/03/18 17:09 Aerobic Blood Culture - Preliminary Blood Venous No Growth Day 1 Anaerobic Blood Culture - Preliminary No Growth Day 1 12/04/18 11:00 Skin and Soft Tissue MRSA/MSSA (PCR - Final Toe Mrsa Negative S.aureus Negative Gram Stain - Final 12/04/18 11:00 Skin and Soft Tissue MRSA/MSSA (PCR - Final Leg Right Mrsa Negative S.aureus Negative Gram Stain - Final Diagnostic Imaging: Patient Name: RADHA MEDRANO Ordering Physician: Marcus Simon MD Acct.#: [id number] : 1970 Age: 48 Sex: F Location: SURGICAL STAY UNIT Exam Date: 12/03/18 163 ADM Status: ADM Stephen Order Information: MRI LOWER EXTREMITY RIGHT W/O Accession Number: [id number] CPT: 72880 EXAM: MRI Right Lower Extremity Without Contrast, Foot EXAM DATE/TIME: 12/03/2018 7:52 PM CLINICAL HISTORY: 48 years old, female; Signs and symptoms; Other: Ulcer; Patient HX: PT has an ulcer on her right 3rd toe. ? Osteo; Additional info: Ulcer right third toe--evaluate for osteo digit-fo. PT motion due to pain. Scanned propeller to reduce artifact and repositioned patient to get her more comfortable, best images possible TECHNIQUE: MR of the Right foot without intravenous contrast. COMPARISON: [facility] R WO MRI LOWER EXTREMITY RIGHT W/O 12/03/2018 2:55 PM FINDINGS: LIGAMENTS: Medial collateral: Evaluation of the collateral ligaments of the third digit are limited by the edematous changes. Ligamentous injury cannot be excluded. No evidence of tear involving the remaining collateral ligaments of the forefoot. Lateral collateral: See above. Lisfranc: No evidence of tear. TENDONS: Flexors: Limited evaluation due to motion artifact. Extensors: Limited evaluation due to motion artifact. Muscles: Unremarkable. Fluid: A small effusion is identified within the third interspace. There is minimal effusion within the first interspace of the forefoot. Sinus tarsi: Minimal edema/fluid is seen within the sinus tarsi. Plantar fascia: The plantar fascia is intact, as visualized. The proximal plantar fascia is out of the [id number] of this study. Bones/joints: This study concentrates on the mid to forefoot. Motion artifact limits the study. Edema is identified within the middle and distal phalanges of the third digit, concerning for osteomyelitis. There is soft tissue swelling of this digit. No significant acute marrow edema within the remaining visualized foot. No dislocation of the visualized foot. Soft tissues: Soft tissue swelling of the dorsum of the foot. IMPRESSION: 1. Edema is identified within the middle and distal phalanges of the third digit, concerning for osteomyelitis. There is soft tissue swelling of this digit. 2. Soft tissue swelling of the dorsum of the foot. 3. Additional findings described above. Patient Name: RADHA MEDRANO Ordering Physician: Makayla MOSS Acct.#: [id number] : 1970 Age: 48 Sex: F Location: SURGICAL STAY UNIT Exam Date: 12/03/18 1310 ADM Status: ADM Stephen Order Information: VL ANK/BRACHIAL INDICES Accession Number: [id number] CPT: 24695 INDICATION: Right lower extremity pain and nonhealing ulcers COMPARISON: None. TECHNIQUE: Ankle-brachial indices and Doppler tracings were obtained of the lower extremities bilaterally. Volume pulse recordings were acquired at the bilateral ankles. REPORT: Ankle-brachial indices: Right: Value (SBP) Index Brachial: 162 Posterior tibialis: 103 0.64 Dorsalis pedis: 88 0.54 Digit: 41 0.25 Left: Value (SBP) Index Brachial: 157 Posterior tibialis: 58 0.37 Dorsalis pedis: 53 0.33 Digit: 79 0.49 Doppler waveforms (acquired at rest): In the interrogated lower extremity arteries, Doppler waveforms are monophasic in all distributions with noticeably reduced amplitude at the right dorsalis pedis and right digit. Volume pulse recordings (acquired at rest): Volume pulse recordings, measured at the bilateral ankles, are symmetric. IMPRESSION: ANANT values are consistent with rest pain with lower values recorded in the left lower extremity but more abnormal arterial waveforms recorded in the right lower extremity. In the presence of nonhealing wounds catheter arteriography is likely indicated for superior vascular characterization. Findings were discussed over the telephone with Dr. Katz at 1624 hours on December 03, 2018. <Electronically signed by Sj Galindo MD in OV> 12/03/181623 Dictated By: Sj Galindo MD Dictated Date/Time: 12/03/181623 This report is only to be considered final once signed by the Provider(s) as displayed in the "<Electronically Signed by >" field (s). Absence of a signature indicates the report is in a draft status and still needs to be finalized. In the event this document was created by someone other than the signing Provider, the individual initiating the document will be listed in the "Entered by:" or "Dictated by:" aguilar. 1 of 2 Assess/Plan/Problems-Billing Assessment: Pt is a 48yof with no reported PMHx who presents with nonhealing wound of RLE, osteomyelitis of 3rd digit of RLE, new onset DM, and PAD. - Patient Problems (1) Diabetes Code(s): E11.9 - TYPE 2 DIABETES MELLITUS WITHOUT COMPLICATIONS SNOMED Code(s) : 44387629 Comment: - Diabetic education, nutritional consult - Good control with Metformin 500 BID and lispro SS - Continue to monitor ACHS (2) Hypertension Code(s): I10 - ESSENTIAL (PRIMARY) HYPERTENSION SNOMED Code(s): 95429836 Comment: - No previous dx of HTN - Metoprolol 12.5 bid started with hold parameters (3) Nonhealing nonsurgical wound Code(s): T14.8XXA - OTHER INJURY OF UNSPECIFIED BODY REGION, INITIAL ENCOUNTER SNOMED Code(s): 74051315 Comment: - POC as per surgery - Wound vac - Continue ceftriaxone and vanco, will need outpatient infusion and PICC line - ID following - Plan for revascularization to aid wound healing (4) Osteomyelitis Code(s): M86.9 - OSTEOMYELITIS, UNSPECIFIED SNOMED Code(s): 52863593 Comment: - R third toe ulcer debrided 12/04 - Local wound care, may still need amputation in the future - Ortho following -ID suggests continue vanco, ceftriaxone and await cultures (5) Peripheral artery disease Code(s): I73.9 - PERIPHERAL VASCULAR DISEASE, UNSPECIFIED SNOMED Code(s): 761728581 Comment: - ANANT results suggest severe PAD - IR recommends revascularization at outpatient and will be coordinated as an outpatient with Dr. Galindo to aid in wound healing (6) DVT prophylaxis Code(s): QEC4746 - SNOMED Code(s): 558512938 Comment: - Lovenox (7) Full code status Code(s): Z78.9 - OTHER SPECIFIED HEALTH STATUS SNOMED Code(s): 930391277 Status and Disposition: Inpatient. Discharge Saturday with IV atbx, wound vac, surgical and IR follow ups.
[2018-12-06] MEDS: Pseudoephedrine HCL ER TAB* 120 MG PO SCH (17:48)
[2018-12-06] MEDS: CMCS: LoraTADine TAB(NF) 10 MG TAB (AUTOSUB to CETIRIZINE) PO SCH (17:48)
[2018-12-06] MEDS: Enoxaparin(*) 40 MG/0.4 ML SYR SUBCUT SCH (17:54)
[2018-12-07] MEDS: Ibuprofen TAB* 800 MG PO PRN (04:20)
[2018-12-07] MEDS: traMADol TAB* 50 MG PO PRN (04:23)
[2018-12-07] MEDS: Vancomycin(*) 1,000 MG in NS 0.9% 250 ML* 250 ML IVPB SCH ×4 (06:01→23:38)
[2018-12-07] MEDS: metFORMIN* 500 MG TAB PO SCH (07:12)
[2018-12-07] MEDS: Docusate CAP* 100 MG PO SCH ×2 (08:13→21:18)
[2018-12-07] MEDS: Insulin LISPRO* 1 UNITS UNIT SUBCUT SCH ×5 (08:13→18:02)
[2018-12-07] MEDS: Metoprolol Tartrate TAB* 25 MG PO SCH ×2 (08:14→21:19)
[2018-12-07] MEDS ORDERED: Dextrose 50% Syringe 50 ML* 25 GM/50 ML SYRINGE IV PUSH PRN (08:53)
--- NOTE | 2018-12-07 09:13 | PN ---
Subjective Date of Service: 12/07/18 Interval History: No overnight events. Anxious to get home. States she knows she needs teaching on glucometer and finger checks. She is hopping with walker and doing well. Good PO. Did meet with nurition. No CP or SOB. Pain tolerable. Objective Active Medications: Acetaminophen (Tylenol Tab*) 650 mg PO Q4H PRN PRN Reason: FEVER/PAIN Last Admin: 12/03/18 23:46 Dose: 650 mg Dextrose (D50w Syringe 50 Ml*) 12.5 gm IV PUSH .FOR FS < 60 - SS PRN PRN Reason: FS < 60 Docusate Sodium (Colace Cap*) 100 mg PO BID [facility] Last Admin: 12/07/18 08:13 Dose: 100 mg Enoxaparin Sodium (Lovenox(*)) 40 mg SUBCUT Q24H [facility] Last Admin: 12/06/18 17:54 Dose: 40 mg Ceftriaxone Sodium 1 gm/ (Sodium Chloride) 50 mls @ 200 mls/hr IVPB Q24H [facility] Last Admin: 12/06/18 15:40 Dose: 200 mls/hr Vancomycin HCl 1,000 mg/ (Sodium Chloride) 250 mls @ 166.667 mls/hr IVPB Q6H [facility] Last Admin: 12/07/18 06:01 Dose: 166.667 mls/hr Ibuprofen (Motrin Tab*) 600 mg PO Q8H PRN PRN Reason: PAIN Insulin Human Lispro (Humalog*) 0 units SUBCUT AC [facility]; Protocol Insulin Human Lispro (Humalog*) 0 units SUBCUT AC [facility]; Protocol Loratadine (Claritin Tab(Nf)) 10 mg PO 1800 [facility] Last Admin: 12/06/18 17:48 Dose: 10 mg Magnesium Hydroxide (Milk Of Magnesia Liq*) 30 ml PO Q12H PRN PRN Reason: CONSTIPATION Metoprolol Tartrate (Lopressor Tab*) 12.5 mg PO Q12HR [facility] Last Admin: 12/07/18 08:14 Dose: 12.5 mg Pharmacy Consult (Vancomycin Per Pharmacy*) 1 note FOLLOW UP .VANC PER PHARMACY [facility] Pharmacy Profile Note (Vancomycin Trough Check) 1 note FOLLOW UP ONCE ONE Stop: 12/08/18 05:01 Prochlorperazine Edisylate (Compazine Inj*) 5 mg IV Q6H PRN PRN Reason: NAUSEA/VOMITING Last Admin: 12/04/18 17:30 Dose: 5 mg Pseudoephedrine HCl (Sudafed 12 Hour*) 120 mg PO QPM [facility] Last Admin: 12/06/18 17:48 Dose: 120 mg Scopolamine (Transderm-Scop 1.5 Mg Patch*) 1 patch TRANSDERM Q72H PRN PRN Reason: NAUSEA/VOMITING Tramadol HCl (Ultram*) 50 mg PO Q6H PRN PRN Reason: moderate pain Last Admin: 12/07/18 04:23 Dose: 50 mg Vital Signs - 8 hr 12/07/18 12/07/18 03:29 04:23 Temperature 97.6 F Pulse Rate 78 Respiratory 16 16 Rate Blood Pressure 140/62 (mmHg) O2 Sat by Pulse 95 Oximetry Oxygen Devices in Use Now: None Ears/Nose/Mouth/Throat: Mucous Membranes Moist Neck: Trachea Midline Respiratory: Symmetrical Chest Expansion and Respiratory Effort, Clear to Auscultation, - - diminished breath sounds Cardiovascular: NL Sounds; No Murmurs; No JVD, RRR Abdominal: NL Sounds; No Tenderness; No Distention, No Hepatosplenomegaly Extremities: - - wound vac in RLE - mild surrounding erythema, no edema. third digit ulcerated with mild erythema. No drainage or swelling Neurological: Alert and Oriented x 3, NL Muscle Strength and Tone Result Diagrams: 12/05/18 05:31 12/05/18 05:26 Additional Lab and Data: Lab Results 12/03/18 12/03/18 Range/Units 11:46 11:46 WBC 12.0 H (3.5-10.8) 10^3/ul RBC 5.08 (4.00-5.40) 10^6/ul Hgb 15.8 (12.0-16.0) g/dl Hct 46 (35-47) % MCV 90 (80-97) fL MCH 31 (27-31) pg MCHC 35 (31-36) g/dl RDW 12 (10.5-15) % Plt Count 301 (150-450) 10^3/ul MPV 9.8 (7.4-10.4) fL Neut % (Auto) 72.8 % Lymph % (Auto) 19.4 % [place] % (Auto) 5.4 % Eos % (Auto) 1.9 % Baso % (Auto) 0.5 % Absolute Neuts (auto) 8.8 H (1.5-7.7) 10^3/ul Absolute Lymphs (auto) 2.3 (1.0-4.8) 10^3/ul Absolute Monos (auto) 0.6 (0-0.8) 10^3/ul Absolute Eos (auto) 0.2 (0-0.6) 10^3/ul Absolute Basos (auto) 0.1 (0-0.2) 10^3/ul Absolute Nucleated RBC 0 10^3/ul Nucleated RBC % 0 ESR Pending Sodium 133 L (135-145) mmol/L Potassium 4.1 (3.5-5.0) mmol/L Chloride 103 (101-111) mmol/L Carbon Dioxide 22 (22-32) mmol/L Anion Gap 8 (2-11) mmol/L BUN 12 (6-24) mg/dL Creatinine 0.63 (0.51-0.95) mg/dL Est GFR ( Amer) 122.0 (>60) Est GFR (Non-Af Amer) 100.9 (>60) BUN/Creatinine Ratio 19.0 (8-20) Glucose 291 H (70-100) mg/dL Calcium 9.4 (8.6-10.3) mg/dL C-Reactive Protein 15.78 H (<8.01) mg/L Microbiology and Other Data: Microbiology 12/03/18 20:51 Aerobic Blood Culture - Preliminary Blood Venous No Growth Day 1 Anaerobic Blood Culture - Preliminary No Growth Day 1 12/03/18 17:09 Aerobic Blood Culture - Preliminary Blood Venous No Growth Day 1 Anaerobic Blood Culture - Preliminary No Growth Day 1 12/04/18 11:00 Skin and Soft Tissue MRSA/MSSA (PCR - Final Toe Mrsa Negative S.aureus Negative Gram Stain - Final 12/04/18 11:00 Skin and Soft Tissue MRSA/MSSA (PCR - Final Leg Right Mrsa Negative S.aureus Negative Gram Stain - Final Diagnostic Imaging: Patient Name: RADHA MEDRANO Ordering Physician: Marcus Simon MD Acct.#: [id number] : 1970 Age: 48 Sex: F Location: SURGICAL STAY UNIT Exam Date: 12/03/181632 ADM Status: ADM Stephen Order Information: MRI LOWER EXTREMITY RIGHT W/O Accession Number: [id number] CPT: 90324 EXAM: MRI Right Lower Extremity Without Contrast, Foot EXAM DATE/TIME: 12/03/2018 7:52 PM CLINICAL HISTORY: 48 years old, female; Signs and symptoms; Other: Ulcer; Patient HX: PT has an ulcer on her right 3rd toe. ? Osteo; Additional info: Ulcer right third toe--evaluate for osteo digit-fo. PT motion due to pain. Scanned propeller to reduce artifact and repositioned patient to get her more comfortable, best images possible TECHNIQUE: MR of the Right foot without intravenous contrast. COMPARISON: [facility] R WO MRI LOWER EXTREMITY RIGHT W/O 12/03/2018 2:55 PM FINDINGS: LIGAMENTS: Medial collateral: Evaluation of the collateral ligaments of the third digit are limited by the edematous changes. Ligamentous injury cannot be excluded. No evidence of tear involving the remaining collateral ligaments of the forefoot. Lateral collateral: See above. Lisfranc: No evidence of tear. TENDONS: Flexors: Limited evaluation due to motion artifact. Extensors: Limited evaluation due to motion artifact. Muscles: Unremarkable. Fluid: A small effusion is identified within the third interspace. There is minimal effusion within the first interspace of the forefoot. Sinus tarsi: Minimal edema/fluid is seen within the sinus tarsi. Plantar fascia: The plantar fascia is intact, as visualized. The proximal plantar fascia is out of the [id number] of this study. Bones/joints: This study concentrates on the mid to forefoot. Motion artifact limits the study. Edema is identified within the middle and distal phalanges of the third digit, concerning for osteomyelitis. There is soft tissue swelling of this digit. No significant acute marrow edema within the remaining visualized foot. No dislocation of the visualized foot. Soft tissues: Soft tissue swelling of the dorsum of the foot. IMPRESSION: 1. Edema is identified within the middle and distal phalanges of the third digit, concerning for osteomyelitis. There is soft tissue swelling of this digit. 2. Soft tissue swelling of the dorsum of the foot. 3. Additional findings described above. Patient Name: RADHA MEDRANO Ordering Physician: Makayla MOSS Acct.#: [id number] : 1970 Age: 48 Sex: F Location: SURGICAL STAY UNIT Exam Date: 12/03/18 1310 ADM Status: ADM Stephen Order Information: VL ANK/BRACHIAL INDICES Accession Number: [id number] CPT: 70272 INDICATION: Right lower extremity pain and nonhealing ulcers COMPARISON: None. TECHNIQUE: Ankle-brachial indices and Doppler tracings were obtained of the lower extremities bilaterally. Volume pulse recordings were acquired at the bilateral ankles. REPORT: Ankle-brachial indices: Right: Value (SBP) Index Brachial: 162 Posterior tibialis: 103 0.64 Dorsalis pedis: 88 0.54 Digit: 41 0.25 Left: Value (SBP) Index Brachial: 157 Posterior tibialis: 58 0.37 Dorsalis pedis: 53 0.33 Digit: 79 0.49 Doppler waveforms (acquired at rest): In the interrogated lower extremity arteries, Doppler waveforms are monophasic in all distributions with noticeably reduced amplitude at the right dorsalis pedis and right digit. Volume pulse recordings (acquired at rest): Volume pulse recordings, measured at the bilateral ankles, are symmetric. IMPRESSION: ANANT values are consistent with rest pain with lower values recorded in the left lower extremity but more abnormal arterial waveforms recorded in the right lower extremity. In the presence of nonhealing wounds catheter arteriography is likely indicated for superior vascular characterization. Findings were discussed over the telephone with Dr. Katz at 1624 hours on December 03, 2018. <Electronically signed by Sj Galindo MD in [place]> 12/03/181623 Dictated By: Sj Galindo MD Dictated Date/Time: 12/03/181623 This report is only to be considered final once signed by the Provider(s) as displayed in the "<Electronically Signed by >" field (s). Absence of a signature indicates the report is in a draft status and still needs to be finalized. In the event this document was created by someone other than the signing Provider, the individual initiating the document will be listed in the "Entered by:" or "Dictated by:" aguilar. 1 of 2 Assess/Plan/Problems-Billing Assessment: Pt is a 48yof with no reported PMHx who presents with nonhealing wound of RLE, osteomyelitis of 3rd digit of RLE, new onset DM, and PAD. - Patient Problems (1) Diabetes Current Visit: Yes Status: Acute Code(s): E11.9 - TYPE 2 DIABETES MELLITUS WITHOUT COMPLICATIONS SNOMED Code(s): 99919403 Comment: A. Good control Had nutrition consult Plan Needs teaching for checking glucose Continue Lispro Sliding Scale Hold Metformin as patient going to IR with contrast in AM Endocrinology consult (2) Hypertension Current Visit: Yes Status: Acute Code(s): I10 - ESSENTIAL (PRIMARY) HYPERTENSION SNOMED Code(s): 95109371 Comment: A. New diagnosis as well - started on metoprolol Still remains hypertensive. With her DM, will start Lisinopril 5 mg Plan Will need electrolyes followed up in 1 week Continue metoprolol BID - No previous dx of HTN (3) Nonhealing nonsurgical wound Current Visit: Yes Status: Acute Code(s): T14.8XXA - OTHER INJURY OF UNSPECIFIED BODY REGION, INITIAL ENCOUNTER SNOMED Code(s): 51616770 Comment: A. S/P I&D - Surgery and ID following Wound culture: Strep B and strep arginosus Anaerobic culture pending Plan Order PICC Recommend touch base with Dr. Green prior to discharge tomorrow for outpatient IV Abx managment Patient to continue to follow up at wound care clinic - POC as per surgery - Plan for revascularization to aid wound healing (4) Osteomyelitis Current Visit: Yes Status: Acute Code(s): M86.9 - OSTEOMYELITIS, UNSPECIFIED SNOMED Code(s): 15829765 Comment: - R third toe ulcer debrided 12/04 - Local wound care, may still need amputation in the future - Ortho following On Vanco and CTX Also needs resvascularization (5) Peripheral artery disease Current Visit: Yes Status: Acute Code(s): I73.9 - PERIPHERAL VASCULAR DISEASE, UNSPECIFIED SNOMED Code(s): 134604973 Comment: - ANANT results suggest severe PAD Dr. Galindo to attempt revascularization tomorrow 12/08. (6) DVT prophylaxis Current Visit: Yes Status: Acute Code(s): TAS1876 - SNOMED Code(s): 377269984 Comment: - Lovenox (7) Full code status Current Visit: Yes Status: Acute Code(s): Z78.9 - OTHER SPECIFIED HEALTH STATUS SNOMED Code(s): 580868097 Status and Disposition: Inpatient. Discharge after IR revascularizaion with PICC and IV abx, wound vac , ID surgical follow up. Also to follow up with Ortho - Dr. Hernandez or Dr. Mosqueda
[2018-12-07] MEDS: Lisinopril TAB* 5 MG PO SCH (10:14)
[2018-12-07] MEDS: Ibuprofen TAB* 600 MG PO PRN ×2 (12:29→21:18)
[2018-12-07] MEDS: cefTRIAXone(*) 1 GM in NS 0.9% 50 ML* 50 ML IVPB SCH (15:32)
[2018-12-07] MEDS ORDERED: metFORMIN* 500 MG TAB PO SCH (17:00)
[2018-12-07] MEDS: Enoxaparin(*) 40 MG/0.4 ML SYR SUBCUT SCH (18:02)
[2018-12-07] MEDS: CMCS: LoraTADine TAB(NF) 10 MG TAB (AUTOSUB to CETIRIZINE) PO SCH (21:18)
[2018-12-07] MEDS: Pseudoephedrine HCL ER TAB* 120 MG PO SCH (21:19)
[2018-12-07] MEDS: methylPREDNISolone SOD 40 MG* 1 ML VIAL IV SCH (23:49)
[2018-12-08] MEDS ORDERED: Vancomycin Trough Check NOTE FOLLOW UP ONE (05:00)
[2018-12-08] MEDS: methylPREDNISolone SOD 40 MG* 1 ML VIAL IV SCH ×2 (06:25→12:04)
[2018-12-08] MEDS: Vancomycin(*) 1,000 MG in NS 0.9% 250 ML* 250 ML IVPB SCH (06:27)
[2018-12-08 06:29] LABS: EGFR African American 189.6 (>60); EGFR Non-African American 156.7 (>60)
[2018-12-08 06:33] LABS: Vancomycin Trough 12.8 mcg/mL
[2018-12-08] MEDS: Insulin LISPRO* 1 UNITS UNIT SUBCUT SCH ×6 (06:36→15:55)
[2018-12-08] MEDS: Metoprolol Tartrate TAB* 25 MG PO SCH ×2 (08:56→21:50)
[2018-12-08] MEDS: Lisinopril TAB* 5 MG PO SCH (08:56)
[2018-12-08] MEDS: Docusate CAP* 100 MG PO SCH ×2 (08:56→21:50)
--- NOTE | 2018-12-08 10:21 | PN ---
Progress Note - Progress Note Date of Service: 12/08/18 SOAP: Subjective: Minimal pain and it is well controlled Using right foot for transfer only Objective: Temp Pulse Resp BP Pulse Ox 98.2 F 78 15 156/64 94 12/08/18 07:45 12/08/18 07:45 12/08/18 07:45 12/08/18 07:45 12/08/18 07:45 PEX: Right foot/leg: Debrided area right lower mota clean without odor or purulence. Some fibrin formation. Exposed muscle pink and healthy, no non-viable tissue. Third toe on right without erythema, open ulcer is clean without purulent drainage. Assessment: Ulcer/abscess right mota s/p drainage and debridement Ulcer right third toe with probable osteo PVD DM Plan: IR intervention today-hopeful revascularization VAC removed today-will place after IR intervention IV abx Ortho When IR complete, Outpt wound vac approved, PICC line in can be d/c'd from surgical standpoint-will follow in wound center All discussed with patient and her today.
--- NOTE | 2018-12-08 11:07 | PN ---
Progress Note - Progress Note Date of Service: 12/08/18 SOAP: Subjective: CC: right foot and leg infection HPI: 48 year old woman with new diagnosis diabetes and right anterior leg abscess and right 3rd toe wound for a few weeks. Had I&D of each area, tolerated well. Vac on her right leg, tolerating it well. No fever, rash, or diarrhea. Objective: Vital Signs Temp 36.8 C 12/08/18 07:45 Pulse 78 12/08/18 07:45 Resp 15 12/08/18 07:45 BP 156/64 12/08/18 07:45 Pulse Ox 94 12/08/18 07:45 Intake & Output 12/07/18 12/08/18 12/08/18 18:59 06:59 18:59 Intake Total 290 1000 Output Total 2900 4700 Balance -2610 -3700 Intake: IV Fluids 20 LR 20 IVPB 270 ABX - VANCOMYCIN 270 Oral 1000 Output: Urine 2900 4700 Other: Estimated Void Large # Bowel Movements 1 Estimated Stool Amount Large # Voids 1 Gen:awake, no distress HEENT: no thrush Heart:RRR no murmur Lungs:CTA BL Abd:+BS NTND soft Skin: no rash MSK: R anterior lower leg vac and 3rd toe ulcer, mild edema Laboratory Results - last 24 hr 12/07/18 12/07/18 12/08/18 12:08 16:59 05:38 BUN 9 Creatinine 0.43 L Est GFR ( Amer) 189.6 Est GFR (Non-Af Amer) 156.7 POC Glucose (mg/dL) 129 H 113 H Vancomycin Trough 12.8 12/08/18 09:02 BUN Creatinine Est GFR ( Amer) Est GFR (Non-Af Amer) POC Glucose (mg/dL) 191 H Vancomycin Trough Assessment: Microbiology 12/04/18 11:00 Anaerobic Culture - Final Wound - Right Third Finegoldia Magna 12/04/18 11:00 Skin and Soft Tissue MRSA/MSSA (PCR - Final Toe Mrsa Negative S.aureus Negative Gram Stain - Final Wound Culture - Final Strep Agalactiae - (Group B) Streptococcus Anginosus Finegoldia Magna Normal Naomi 12/04/18 11:00 Anaerobic Culture - Final Wound - Right Leg 12/04/18 11:00 Skin and Soft Tissue MRSA/MSSA (PCR - Final Leg Right Mrsa Negative S.aureus Negative Gram Stain - Final Wound Culture - Final Strep Agalactiae - (Group B) 12/03/18 20:51 Aerobic Blood Culture - Preliminary Blood Venous No Growth Day 4 Anaerobic Blood Culture - Preliminary No Growth Day 4 12/03/18 17:09 Aerobic Blood Culture - Preliminary Blood Venous No Growth Day 4 Anaerobic Blood Culture - Preliminary No Growth Day 4 Plan: 1. dc vancomycin; cetriaxone 2 gm IV daily , day 37/ with weekly cbc, cmp, crp via picc (ordered). Fu with me 3 weeks. She will call if fever, rash, or diarrhea.
[2018-12-08] MEDS ORDERED: diPHENhydraMINE IV* 50 MG in NS 0.9% 50 ML* 50 ML IVPB ONE (12:00)
[2018-12-08] MEDS ORDERED: diPHENhydraMINE IV* 50 MG/ML 1 ml VIAL (BENADRYL) IV ONE (12:00)
[2018-12-08] MEDS: traMADol TAB* 50 MG PO PRN ×2 (12:04→21:50)
[2018-12-08] MEDS ORDERED: diPHENhydraMINE IV* 50 MG/ML 1 ml VIAL (BENADRYL) ONE (12:10)
[2018-12-08] MEDS ORDERED: Lidocaine 1% INJ* 10 MG/ML 30 ML SDV ONE (12:29)
[2018-12-08] MEDS ORDERED: Iohexol 350 (CONTRAST) 200 ML MDV IV ONE (12:30)
[2018-12-08] MEDS ORDERED: fentaNYL* 50 MCG/ML 2 ML VIAL (100 MCG VIAL) ONE ×2 (12:37→13:13)
[2018-12-08] MEDS ORDERED: Midazolam* 1 MG/ML 10 ML VIAL (10 MG) ONE (12:37)
[2018-12-08] MEDS ORDERED: Heparin 2 UNITS/ML IVPREMIX* 2,000 ML IV ONE (12:41)
[2018-12-08] MEDS ORDERED: Flumazenil* 0.1 MG/ML 5 ML MDV ONE (12:49)
[2018-12-08] MEDS ORDERED: Naloxone* 0.4 MG/ML 1 ML VIAL ONE (12:49)
[2018-12-08] MEDS ORDERED: Metoprolol Tartrate IV* 1 MG/ML 5 ML VIAL ONE (14:30)
[2018-12-08] MEDS: cefTRIAXone(*) 1 GM in NS 0.9% 50 ML* 50 ML IVPB SCH (15:40)
[2018-12-08] MEDS: Enoxaparin(*) 40 MG/0.4 ML SYR SUBCUT SCH (17:34)
[2018-12-08] MEDS: CMCS: LoraTADine TAB(NF) 10 MG TAB (AUTOSUB to CETIRIZINE) PO SCH (18:08)
[2018-12-08] MEDS: Pseudoephedrine HCL ER TAB* 120 MG PO SCH (18:09)
--- NOTE | 2018-12-08 19:16 | PN ---
Subjective Date of Service: 12/08/18 Interval History: To IR for procedure and return Reports pain in right lower leg is minimal. Looks forward to getting wound vac back on as it is more comfortable than current gauze. Discussed diabetes at length and patient is learning diet and making appropriate choices Objective Active Medications: Acetaminophen (Tylenol Tab*) 650 mg PO Q4H PRN PRN Reason: FEVER/PAIN Last Admin: 12/03/18 23:46 Dose: 650 mg Dextrose (D50w Syringe 50 Ml*) 12.5 gm IV PUSH .FOR FS < 60 - SS PRN PRN Reason: FS < 60 Docusate Sodium (Colace Cap*) 100 mg PO BID [facility] Last Admin: 12/08/18 08:56 Dose: Not Given Enoxaparin Sodium (Lovenox(*)) 40 mg SUBCUT Q24H [facility] Last Admin: 12/08/18 17:34 Dose: Not Given Ceftriaxone Sodium 1 gm/ (Sodium Chloride) 50 mls @ 200 mls/hr IVPB Q24H [facility] Last Admin: 12/08/18 15:40 Dose: 200 mls/hr Ibuprofen (Motrin Tab*) 600 mg PO Q8H PRN PRN Reason: PAIN Last Admin: 12/07/18 21:18 Dose: 600 mg Insulin Human Lispro (Humalog*) 0 units SUBCUT AC [facility]; Protocol Last Admin: 12/08/18 15:54 Dose: 2 units Insulin Human Lispro (Humalog*) 0 units SUBCUT AC [facility]; Protocol Last Admin: 12/08/18 15:55 Dose: 2 units Lisinopril (Prinivil Tab*) 5 mg PO DAILY [facility] Last Admin: 12/08/18 08:56 Dose: Not Given Loratadine (Claritin Tab(Nf)) 10 mg PO 2100 [facility] Magnesium Hydroxide (Milk Of Magnesia Liq*) 30 ml PO Q12H PRN PRN Reason: CONSTIPATION Metoprolol Tartrate (Lopressor Tab*) 12.5 mg PO Q12HR [facility] Last Admin: 12/08/18 08:56 Dose: Not Given Prochlorperazine Edisylate (Compazine Inj*) 5 mg IV Q6H PRN PRN Reason: NAUSEA/VOMITING Last Admin: 12/04/18 17:30 Dose: 5 mg Pseudoephedrine HCl (Sudafed 12 Hour*) 120 mg PO 2100 [facility] Scopolamine (Transderm-Scop 1.5 Mg Patch*) 1 patch TRANSDERM Q72H PRN PRN Reason: NAUSEA/VOMITING Tramadol HCl (Ultram*) 50 mg PO Q6H PRN PRN Reason: moderate pain Last Admin: 12/08/18 12:04 Dose: 50 mg Vital Signs - 8 hr 12/08/18 12/08/18 12/08/18 11:15 12:04 15:14 Temperature 98.0 F Pulse Rate 91 79 Respiratory 15 16 17 Rate Blood Pressure 145/73 168/82 (mmHg) O2 Sat by Pulse 94 91 Oximetry 12/08/18 12/08/18 12/08/18 15:29 15:44 15:59 Temperature Pulse Rate 77 90 81 Respiratory 18 15 15 Rate Blood Pressure 163/78 182/82 162/79 (mmHg) O2 Sat by Pulse 91 89 92 Oximetry 12/08/18 12/08/18 12/08/18 16:01 16:14 16:29 Temperature Pulse Rate 82 78 82 Respiratory 13 13 12 Rate Blood Pressure 162/67 173/78 (mmHg) O2 Sat by Pulse 90 91 90 Oximetry 12/08/18 12/08/18 16:53 17:35 Temperature 97.9 F 97.9 F Pulse Rate 93 93 Respiratory 18 18 Rate Blood Pressure 161/68 161/68 (mmHg) O2 Sat by Pulse 96 96 Oximetry Oxygen Devices in Use Now: None Appearance: Comfortable Eyes: No Scleral Icterus Ears/Nose/Mouth/Throat: Clear Oropharnyx, Mucous Membranes Moist Neck: NL Appearance and Movements; NL JVP Respiratory: Symmetrical Chest Expansion and Respiratory Effort, Clear to Auscultation Cardiovascular: NL Sounds; No Murmurs; No JVD, RRR, No Edema Abdominal: NL Sounds; No Tenderness; No Distention Lymphatic: No Cervical Adenopathy Extremities: No Edema Skin: No Rash or Ulcers Neurological: Alert and Oriented x 3 Nutrition: Taking PO's Result Diagrams: 12/05/18 05:31 12/08/18 05:38 Additional Lab and Data: Laboratory Results - last 24 hr 12/08/18 12/08/18 12/08/18 05:38 09:02 11:57 BUN 9 Creatinine 0.43 L Est GFR ( Amer) 189.6 Est GFR (Non-Af Amer) 156.7 POC Glucose (mg/dL) 191 H 182 H Vancomycin Trough 12.8 12/08/18 12/08/18 15:36 17:25 BUN Creatinine Est GFR ( Amer) Est GFR (Non-Af Amer) POC Glucose (mg/dL) 176 H 246 H Vancomycin Trough Microbiology and Other Data: Microbiology 12/03/18 17:09 Blood Venous Aerobic Blood Culture - Final No Growth Day 5 12/03/18 17:09 Blood Venous Anaerobic Blood Culture - Final No Growth Day 5 12/04/18 11:00 Wound - Right Third Anaerobic Culture - Final Finegoldia Magna 12/04/18 11:00 Toe Skin and Soft Tissue MRSA/MSSA (PCR - Final Mrsa Negative S.aureus Negative 12/04/18 11:00 Toe Gram Stain - Final 12/04/18 11:00 Toe Wound Culture - Final Strep Agalactiae - (Group B) Streptococcus Anginosus Finegoldia Magna Normal Naomi 12/04/18 11:00 Wound - Right Leg Anaerobic Culture - Final 12/04/18 11:00 Leg Right Skin and Soft Tissue MRSA/MSSA (PCR - Final Mrsa Negative S.aureus Negative 12/04/18 11:00 Leg Right Gram Stain - Final 12/04/18 11:00 Leg Right Wound Culture - Final Strep Agalactiae - (Group B) 12/03/18 20:51 Blood Venous Aerobic Blood Culture - Preliminary No Growth Day 4 12/03/18 20:51 Blood Venous Anaerobic Blood Culture - Preliminary No Growth Day 4 Diagnostic Imaging: Patient Name: RADHA MEDRANO Ordering Physician: Marcus Simon MD Acct.#: [id number] : 1970 Age: 48 Sex: F Location: SURGICAL STAY UNIT Exam Date: 12/03/18 1633 ADM Status: ADM Stephen Order Information: MRI LOWER EXTREMITY RIGHT W/O Accession Number: [id number] CPT: 92913 EXAM: MRI Right Lower Extremity Without Contrast, Foot EXAM DATE/TIME: 12/03/2018 7:52 PM CLINICAL HISTORY: 48 years old, female; Signs and symptoms; Other: Ulcer; Patient HX: PT has an ulcer on her right 3rd toe. ? Osteo; Additional info: Ulcer right third toe--evaluate for osteo digit-fo. PT motion due to pain. Scanned propeller to reduce artifact and repositioned patient to get her more comfortable, best images possible TECHNIQUE: MR of the Right foot without intravenous contrast. COMPARISON: LOEX R WO MRI LOWER EXTREMITY RIGHT W/O 12/03/2018 2:55 PM FINDINGS: LIGAMENTS: Medial collateral: Evaluation of the collateral ligaments of the third digit are limited by the edematous changes. Ligamentous injury cannot be excluded. No evidence of tear involving the remaining collateral ligaments of the forefoot. Lateral collateral: See above. Lisfranc: No evidence of tear. TENDONS: Flexors: Limited evaluation due to motion artifact. Extensors: Limited evaluation due to motion artifact. Muscles: Unremarkable. Fluid: A small effusion is identified within the third interspace. There is minimal effusion within the first interspace of the forefoot. Sinus tarsi: Minimal edema/fluid is seen within the sinus tarsi. Plantar fascia: The plantar fascia is intact, as visualized. The proximal plantar fascia is out of the [id number] of this study. Bones/joints: This study concentrates on the mid to forefoot. Motion artifact limits the study. Edema is identified within the middle and distal phalanges of the third digit, concerning for osteomyelitis. There is soft tissue swelling of this digit. No significant acute marrow edema within the remaining visualized foot. No dislocation of the visualized foot. Soft tissues: Soft tissue swelling of the dorsum of the foot. IMPRESSION: 1. Edema is identified within the middle and distal phalanges of the third digit, concerning for osteomyelitis. There is soft tissue swelling of this digit. 2. Soft tissue swelling of the dorsum of the foot. 3. Additional findings described above. Patient Name: RADHA MEDRANO Ordering Physician: Makayla MOSS Acct.#: [id number] : 1970 Age: 48 Sex: F Location: SURGICAL STAY UNIT Exam Date: 12/03/18 1310 ADM Status: ADM Stephen Order Information: VL ANK/BRACHIAL INDICES Accession Number: [id number] CPT: 93497 INDICATION: Right lower extremity pain and nonhealing ulcers COMPARISON: None. TECHNIQUE: Ankle-brachial indices and Doppler tracings were obtained of the lower extremities bilaterally. Volume pulse recordings were acquired at the bilateral ankles. REPORT: Ankle-brachial indices: Right: Value (SBP) Index Brachial: 162 Posterior tibialis: 103 0.64 Dorsalis pedis: 88 0.54 Digit: 41 0.25 Left: Value (SBP) Index Brachial: 157 Posterior tibialis: 58 0.37 Dorsalis pedis: 53 0.33 Digit: 79 0.49 Doppler waveforms (acquired at rest): In the interrogated lower extremity arteries, Doppler waveforms are monophasic in all distributions with noticeably reduced amplitude at the right dorsalis pedis and right digit. Volume pulse recordings (acquired at rest): Volume pulse recordings, measured at the bilateral ankles, are symmetric. IMPRESSION: ANANT values are consistent with rest pain with lower values recorded in the left lower extremity but more abnormal arterial waveforms recorded in the right lower extremity. In the presence of nonhealing wounds catheter arteriography is likely indicated for superior vascular characterization. Findings were discussed over the telephone with Dr. Katz at 1624 hours on December 03, 2018. <Electronically signed by Sj Galindo MD in OV> 12/03/181623 Dictated By: Sj Galindo MD Dictated Date/Time: 12/03/181623 This report is only to be considered final once signed by the Provider(s) as displayed in the "<Electronically Signed by >" field (s). Absence of a signature indicates the report is in a draft status and still needs to be finalized. In the event this document was created by someone other than the signing Provider, the individual initiating the document will be listed in the "Entered by:" or "Dictated by:" aguilar. 1 of 2 Assess/Plan/Problems-Billing Assessment: Pt is a 48yof with no reported PMHx who presents with nonhealing wound of RLE, osteomyelitis of 3rd digit of RLE, new onset DM, and PAD. - Patient Problems (1) Diabetes Comment: - Good control - Had nutrition consult - Needs teaching for checking glucose - Continue Lispro Sliding Scale - Metformin held this morning as patient went IR with contrast this AM. Cont ot hold for 48 hrs post procedure - Endocrinology consult ordered (2) Hypertension Comment: - New diagnosis since admission. She was started on metoprolol, but still remains hypertensive. - Given DM patient was started Lisinopril 5 mg. - Will need electrolyes followed up in 1 week - Will need to follow up with PCP for further adjustment if needed (3) Nonhealing nonsurgical wound Comment: - S/P I&D - Surgery and ID following - Dr. Pink consulting for outpatient IV Abx managment - Patient to continue to follow up at wound care clinic - Rrevascularization completed today to aid wound healing (4) Osteomyelitis Comment: - R third toe ulcer debrided 12/04 - Local wound care, may still need amputation in the future - Ortho following - Vanco discontinued by ID and CTX continued - PICC ordered for outpatient IV abx. Will need outpatient labs and follow up with Dr Pink Also needs resvascularization (5) Peripheral artery disease Comment: - ANANT results suggest severe PAD - Dr. Galindo performed procedure to revascularize today (6) DVT prophylaxis Comment: - Lovenox (7) Full code status Status and Disposition: Inpatient. Discharge after IR revascularizaion with PICC and IV abx, wound vac , ID surgical follow up. Also to follow up with Ortho - Dr. Hernandez or Dr. Mosqueda Attending: Nghia Snell
[2018-12-08] MEDS ORDERED: Pseudoephedrine HCL ER TAB* 120 MG PO SCH (21:00)
[2018-12-08] MEDS ORDERED: CMCS: LoraTADine TAB(NF) 10 MG TAB (AUTOSUB to CETIRIZINE) PO SCH (21:00)
[2018-12-09 05:50] LABS: ABS Basophils 0 10^3/ul (0-0.2); ABS Eosinophils 0.1 10^3/ul (0-0.6); ABS Lymphocytes 2.8 10^3/ul (1.0-4.8); ABS Nucleated RBC 0 10^3/ul; Eosinophil % 0.4 %; Hematocrit 43 % (35-47); Hemoglobin 14.8 g/dl (12.0-16.0); Lymphocyte % 18.9 %; Mean Corpuscular HGB Conc 34 g/dl (31-36); Mean Corpuscular Hemoglobin 31 pg (27-31); Mean Corpuscular Volume 90 fL (80-97); Mean Platelet Volume 9.7 fL (7.4-10.4); Nucleated Red Blood Cells % 0; Platelet Count 274 10^3/ul (150-450); Red Blood Count 4.81 10^6/ul (4.00-5.40); Red Cell Distribution Width 13 % (10.5-15); White Blood Count 14.9 10^3/ul (3.5-10.8)
[2018-12-09 06:10] LABS: BUN/Creatinine Ratio 25.5 (8-20); Calcium 9.4 mg/dL (8.6-10.3); EGFR African American 155.7 (>60); EGFR Non-African American 128.7 (>60); Potassium 3.4 mmol/L (3.5-5.0)
[2018-12-09] MEDS ORDERED: Potassium Chlor TAB* 20 MEQ TAB.ER PO ONE (08:43)
[2018-12-09] MEDS: Docusate CAP* 100 MG PO SCH (09:34)
[2018-12-09] MEDS: traMADol TAB* 50 MG PO PRN (09:34)
[2018-12-09] MEDS: Lisinopril TAB* 5 MG PO SCH (09:34)
[2018-12-09] MEDS: Insulin LISPRO* 1 UNITS UNIT SUBCUT SCH ×4 (09:35→14:27)
[2018-12-09] MEDS: Metoprolol Tartrate TAB* 25 MG PO SCH (09:36)
--- NOTE | 2018-12-09 11:10 | CONSULT ---
Consult Consult: [facility] Inpatient Consult Note Date of Consult: 12/08/18 Reason for Consult: type 2 diabetes Reason for Admission: lower extremity wounds, arterial insufficiency ASSESSMENT: 48 yo with newly-recognized vascular disease and T2DM (A1c 9.5%). She has had good glycemic control with minimal use of insulin during this admission. I recommend starting oral hypoglycemic agents at doses below and optimizing therapies to prevent macrovascular complications of diabetes. She will require prescriptions for the following items at discharge. PLAN: - start metformin XR 750mg once daily at bedtime - start glipizide XL 5mg once daily in the morning - start atorvastatin 40mg at bedtime - continue lisinopril 5mg daily - start fingerstick monitoring with home glucometer once daily in the morning - follow-up endocrine in 2-4 weeks SUBJECTIVE: History of Present Illness: See admission note for details. This is a 48 yo F with no significant PMH who present with recurrent R foot and RLE wounds on 12/03. She was initially seen at [facility] and referred to wound clinic, but was recommended for urgent admission and surgical debridement, which was performed by Dr. Simon last week. During the workup, she was discovered to have vascular insufficiency and hyperglycemia with admission [id number]. She has no known history of diabetes, including gestational diabetes. She denies symptoms or known complications of diabetes. Past Medical History: 1. Tobacco use disorder Medications Prior to Admission: Loratadine/Pseudoephedrine [Allergy Relief D-24Hr Tablet] 1 tab PO QPM 12/03/18 [History Confirmed 12/03/18] Inpatient Medications: Acetaminophen (Tylenol Tab*) 650 mg PO Q4H PRN PRN Reason: FEVER/PAIN Last Admin: 12/03/18 23:46 Dose: 650 mg Dextrose (D50w Syringe 50 Ml*) 12.5 gm IV PUSH .FOR FS < 60 - SS PRN PRN Reason: FS < 60 Docusate Sodium (Colace Cap*) 100 mg PO BID [facility] Last Admin: 12/09/18 09:34 Dose: 100 mg Enoxaparin Sodium (Lovenox(*)) 40 mg SUBCUT Q24H [facility] Last Admin: 12/08/18 17:34 Dose: Not Given Heparin Sodium (Porcine) (Heparin Flush Picc/Ml/Cvc(*)) 1 - 3 ml FLUSH 0600, 1800 [facility]; Protocol Ceftriaxone Sodium 1 gm/ (Sodium Chloride) 50 mls @ 200 mls/hr IVPB Q24H [facility] Last Admin: 12/08/18 15:40 Dose: 200 mls/hr Ibuprofen (Motrin Tab*) 600 mg PO Q8H PRN PRN Reason: PAIN Last Admin: 12/07/18 21:18 Dose: 600 mg Insulin Human Lispro (Humalog*) 0 units SUBCUT [facility]; Protocol Last Admin: 12/09/18 09:35 Dose: 2 units Insulin Human Lispro (Humalog*) 0 units SUBCUT [facility]; Protocol Last Admin: 12/09/18 09:35 Dose: 2 units Lisinopril (Prinivil Tab*) 5 mg PO DAILY [facility] Last Admin: 12/09/18 09:34 Dose: 5 mg Loratadine (Claritin Tab(Nf)) 10 mg PO 2100 [facility] Last Admin: 12/08/18 21:50 Dose: 10 mg Magnesium Hydroxide (Milk Of Magnpooja Liq*) 30 ml PO Q12H PRN PRN Reason: CONSTIPATION Metoprolol Tartrate (Lopressor Tab*) 12.5 mg PO Q12HR [facility] Last Admin: 12/09/18 09:36 Dose: 12.5 mg Prochlorperazine Edisylate (Compazine Inj*) 5 mg IV Q6H PRN PRN Reason: NAUSEA/VOMITING Last Admin: 12/04/18 17:30 Dose: 5 mg Pseudoephedrine HCl (Sudafed 12 Hour*) 120 mg PO 2100 [facility] Last Admin: 12/08/18 21:50 Dose: 120 mg Scopolamine (Transderm-Scop 1.5 Mg Patch*) 1 patch TRANSDERM Q72H PRN PRN Reason: NAUSEA/VOMITING Tramadol HCl (Ultram*) 50 mg PO Q6H PRN PRN Reason: moderate pain Last Admin: 12/09/18 09:34 Dose: 50 mg Allergies/Intolerances: Contrast agents. PCN. Social History: Lives with . Family nearby, including 2 grandchildren for whom she is a primary caregiver. Active smoker. Denies significant alcohol or drugs. Family History: Diabetes and vascular disease. Review of Systems: As above. OBJECTIVE: Temp Pulse Resp BP Pulse Ox 98.2 F 83 16 143/61 97 12/09/18 07:59 12/09/18 07:59 12/09/18 09:34 12/09/18 07:59 12/09/18 07:59 General: alert, pleasant, oriented, no distress ENT: neck supple, no thyromegaly, no bruit is heard Chest: CTAB, no wheezing or crackles CV: RRR, no murmur Abdomen: soft, non-tender Extremities: no edema, distal pulses not palpable, dressings on anterior RLE and R foot Skin: warm, dry, no rash Neuro: grossly intact motor/sensory in extremities Psych: restricted affect, pleasant Labs: Glucose Results 12/07/18 11:30 129 12/07/18 16:30 113 12/08/18 07:30 191 12/08/18 11:30 181 12/08/18 16:01 176 12/08/18 21:55 163 12/09/18 07:30 154 WBC 14.9 10^3/ul (3.5-10.8) H 12/09/18 04:53 RBC 4.81 10^6/ul (4.00-5.40) 12/09/18 04:53 Hgb 14.8 g/dl (12.0-16.0) 12/09/18 04:53 Hct 43 % (35-47) 12/09/18 04:53 MCV 90 fL (80-97) 12/09/18 04:53 MCH 31 pg (27-31) 12/09/18 04:53 MCHC 34 g/dl (31-36) 12/09/18 04:53 RDW 13 % (10.5-15) 12/09/18 04:53 Plt Count 274 10^3/ul (150-450) 12/09/18 04:53 MPV 9.7 fL (7.4-10.4) 12/09/18 04:53 Neut % (Auto) 73.6 % 12/09/18 04:53 Lymph % (Auto) 18.9 % 12/09/18 04:53 [place] % (Auto) 6.9 % 12/09/18 04:53 Eos % (Auto) 0.4 % 12/09/18 04:53 Baso % (Auto) 0.2 % 12/09/18 04:53 Absolute Neuts (auto) 11.0 10^3/ul (1.5-7.7) H 12/09/18 04:53 Absolute Lymphs (auto) 2.8 10^3/ul (1.0-4.8) 12/09/18 04:53 Absolute Monos (auto) 1.0 10^3/ul (0-0.8) H 12/09/18 04:53 Absolute Eos (auto) 0.1 10^3/ul (0-0.6) 12/09/18 04:53 Absolute Basos (auto) 0 10^3/ul (0-0.2) 12/09/18 04:53 Absolute Nucleated RBC 0 10^3/ul 12/09/18 04:53 Nucleated RBC % 0 12/09/18 04:53 ESR 44 mm/Hr (0-14) H 12/03/18 11:46 Sodium 134 mmol/L (135-145) L 12/09/18 04:53 Potassium 3.4 mmol/L (3.5-5.0) L 12/09/18 04:53 Chloride 102 mmol/L (101-111) 12/09/18 04:53 Carbon Dioxide 24 mmol/L (22-32) 12/09/18 04:53 Anion Gap 8 mmol/L (2-11) 12/09/18 04:53 BUN 13 mg/dL (6-24) 12/09/18 04:53 Creatinine 0.51 mg/dL (0.51-0.95) 12/09/18 04:53 Est GFR ( Amer) 155.7 (>60) 12/09/18 04:53 Est GFR (Non-Af Amer) 128.7 (>60) 12/09/18 04:53 BUN/Creatinine Ratio 25.5 (8-20) H 12/09/18 04:53 Glucose 187 mg/dL (70-100) H 12/09/18 04:53 POC Glucose (mg/dL) 154 mg/dL (70-100) H 12/09/18 09:26 Hemoglobin A1c 9.5 % (4.0-5.6) H 12/05/18 05:31 Calcium 9.4 mg/dL (8.6-10.3) 12/09/18 04:53 Total Bilirubin 0.60 mg/dL (0.2-1.0) 12/05/18 05:26 AST 18 U/L (13-39) 12/05/18 05:26 ALT 20 U/L (7-52) 12/05/18 05:26 Alkaline Phosphatase 59 U/L (34-104) 12/05/18 05:26 C-Reactive Protein 15.78 mg/L (<8.01) H 12/03/18 11:46 Total Protein 6.5 g/dL (6.4-8.9) 12/05/18 05:26 Albumin 3.3 g/dL (3.2-5.2) 12/05/18 05:26 Globulin 3.2 g/dL (2-4) 12/05/18 05:26 Albumin/Globulin Ratio 1.0 (1-3) 12/05/18 05:26 Vancomycin Trough 12.8 mcg/mL 12/08/18 05:38
--- NOTE | 2018-12-09 11:27 | PN ---
Progress Note - Progress Note Date of Service: 12/09/18 Note: Surgery Progress: S: Spoke w/ Dr. Simon this a.m. Angiogram was apparently unsuccessful yesterday as Dr. Galindo was unable to cannulate the iliac stenosis from the femoral approach. There apparently is a plan to try an antegrade approach in the near future. Patient anxious to go home. O: Vital Signs - 8 hr 12/09/18 12/09/18 12/09/18 03:33 07:59 09:34 Temperature 98.1 F 98.2 F Pulse Rate 82 83 Respiratory 17 16 16 Rate Blood Pressure 140/64 143/61 (mmHg) O2 Sat by Pulse 98 97 Oximetry No PE performed. Small amt of serous-appearing drainage on ant tib dsg A: open wound Right leg (ant tib) s/p debridement; osteomyelitis Right third toe P: home today w/ VAC (to be changed q MWF, with wound clinic f/u q Sat either at [place] w/ Dr. Aguilar or here w/ Dr. Simon, and PT to change VAC q Mon and Fri); daily outpt IV abx per Dr. Green w/ f/u per his office; DM f/u w/ Dr. Yeboah.
[2018-12-09] MEDS: Ibuprofen TAB* 600 MG PO PRN (12:04)
[2018-12-09 14:06] VITALS: BP 136/66
[2018-12-09] MEDS: cefTRIAXone(*) 1 GM in NS 0.9% 50 ML* 50 ML IVPB SCH (14:40)
--- NOTE | 2018-12-09 17:39 | DS ---
CC: Dr. Coleen Ryan; Dr. Marcus Simon; Dr. Deo Green; Dr. Pradeep Yeboah * DISCHARGE SUMMARY: DATE OF ADMISSION: 12/03/18 DATE OF DISCHARGE: 12/09/18 PRIMARY CARE PROVIDER: Dr. Coleen Ryan. CONSULTING PHYSICIANS: Dr. Marcus Simon, Dr. Frederic Green, Dr. Pradeep Yeboah. ATTENDING PHYSICIAN: Dr. Nahum Morel * (dictated by Carie Dove NP). PRIMARY DIAGNOSES: 1. Lower extremity wounds. 2. Arterial insufficiency. 3. Diabetes. 4. Hypertension. 5. Osteomyelitis. CONSULTATIONS WHILE IN THE HOSPITAL: Dr. Deo Green, Infectious Disease; Dr. Marcus Simon, Surgery; Dr. Pradeep Yeboah, Endocrinology. PROCEDURES WHILE IN THE HOSPITAL: 1. Incision and drainage of abscess, right mota; debridement of ulcer, right third toe with culture. 2. Arteriography, lower extremity bilateral; revascularization. STUDIES WHILE IN THE HOSPITAL: 1. Lower extremity MRI, 12/03/18, impression: Extensive subcutaneous edema of the right lower leg, markedly asymmetric with contralateral leg. Approximately 3.5 cm transverse x 3.4 cm cephalocaudal soft tissue ulceration extending down to the muscular fascia at the anterolateral aspect of the right lower leg 7 cm above the ankle. Ascending cephalad and medial from the region of the raghav ulceration, there is suggestion of a 3.5 cm transverse x 0.8 cm AP x 7.2 cm cephalocaudal located loculated abscess collection with dermal and subcutaneous tissue planes extending down to the muscular fascia. Mild edema with the anterior compartment skeletal musculature primarily the tibialis anterior without evidence of muscular compartment abscess collection. Normal bone marrow signal throughout the without evidence of osteomyelitis. 2. Lower extremity MRI, impression: Edema is identified within the middle and distal phalanges of the third digit concerning for osteomyelitis. There is soft tissue swelling of this digit. Soft tissue swelling of dorsum of the foot. Additional findings as described above. 3. Aortoiliac vascular ultrasound, impression: No evidence of abdominal aortic aneurysm. 4. 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 DISCHARGE HOME MEDICATIONS: New home medications: 1. Metformin XR 750 mg once daily at bedtime. 2. Glipizide XL 5 mg once daily in the morning. 3. Atorvastatin 40 mg at bedtime. 4. Lisinopril 5 mg daily. 5. Metoprolol tartrate 12.5 mg p.o. q.12 hours. 6. Ceftriaxone 2 g IV daily for 42 days. Today is day 7. Continued home medication: Britney Relief D 24 Hour tablet 1 tab p.o. q.p.m. Discontinued home medications: No home medications discontinued. Changed home medications: No home medications were changed. HISTORY OF PRESENT ILLNESS/HOSPITAL COURSE: Ms. Arroyo is a 48-year-old female with no past medical history who presented to the emergency room with complaints of right lower extremity third digit wound that has been present for approximately 8 months. Please see history and physical dictated by ISA Cavazos, for complete summary of events leading up to the hospitalization , but in short, the patient presented to the emergency room with right lower extremity third digit wound for approximately 8 months in addition to a lateral mota wound. She initially managed the wounds on her own for approximately 6-1/ 2 months. They shrank in size, but never fully healed. She reports approximately a month and half before coming to the emergency department she noticed swelling and redness around the wound. Finally, approximately a week before presenting to the emergency room, she said she awoke in the middle of the night and her pant leg was soaked through from weeping; therefore, she decided to seek medical attention and was given prescription for clindamycin 300 mg 4 times daily, which she has been taking without improvement. The day of her presentation to the emergency room, she did see Dr. Simon regarding her skin wound who sent her directly to the emergency room for admission. During this hospital stay, the patient underwent an I and D and debridement of her right lower extremity wounds. She had a wound VAC placed. In addition, yesterday, she underwent revascularization due to PAD. Due to findings of osteomyelitis, the patient has also been on antibiotics while inpatient. The patient was on vancomycin and ceftriaxone. The patient's antibiotic regimen has been narrowed by Infectious Disease to include ceftriaxone only for 42 days. In addition, the patient's hospitalization was further complicated by the new diagnoses of diabetes and hypertension which have been treated while inpatient and the patient is tolerating treatment well. Due to the new diagnosis of diabetes, she was also consulted by Dr. Pradeep Yeboah. The patient is ready for discharge today, 12/09/18, to home. REVIEW OF SYSTEMS: The patient reports pain to right lower extremity is tolerable. The patient denies numbness and tingling, chest pain, shortness of breath, palpitations, nausea, vomiting, diarrhea, weakness. A 12-review of systems was completed and all others were negative. PHYSICAL EXAMINATION: Vital signs as follows: Temp 98.2, pulse 83, RR 16, O2 sat is 97% on room air, BP 143/61. General: Ms. Arroyo is a 48-year-old female , who is resting in bed, with at bedside, in no acute distress, appears stated age. The patient is dressed and ready to go. She has her wound VAC in place. HEENT: EOMs intact. PERRLA. Oral mucosa is moist without lesions. Neck: Supple. No lymphadenopathy. Respiratory: Lung sounds are clear to auscultation. Good aeration. No rhonchi, wheezes, or rales. CV: S1, S2 present. No murmurs, rubs, or gallops. Regular rate and rhythm. Abdomen: Abdomen is soft, nontender. Bowel sounds x4. Extremities: Moves all extremities well. No edema. No clubbing or cyanosis. Neuro: Awake, alert, oriented x4. Motor strength 5/5 in the upper and lower extremities. Steady gait with no impairment. Skin: As mentioned above, the patient has a wound VAC to her right lateral mota. She has a dressing to her right foot covering all toes which is clean, dry, and intact. Remainder of the skin is grossly intact without lesions. DIAGNOSTIC STUDIES/LAB DATA: Sodium 134, potassium 3.4, chloride 102, carbon dioxide 24, BUN 13, creatinine 0.51, glucose 142. WBC 14.9, hemoglobin 14.8, hematocrit 43, platelets 274. DISCHARGE PLAN/FOLLOWUP: 1. Right foot and leg infection; osteomyelitis: Continue wound VAC with scheduled dressing changes. Continue ceftriaxone 2 g IV daily, today's day 7 of 42. The patient is to have weekly CBCs, CMPs, CRPs via PICC, which have been ordered by Dr. Green. The results should be sent to Dr. Deo Green. The patient should follow up with Dr. Deo Green in 3 weeks. The patient should call if she has an fevers, rash, or diarrhea. IV infusions have been set up by Social Work. Wound VAC to be changed Saturday, Saturday, Saturday with wound clinic followup every Saturday either at [place] with Dr. Aguilar or [place] [facility] [place]. Physical Therapy to change wound VAC on Saturday and Saturday. 2. Diabetes: The patient was seen by Dr. Yeboah in consultation. The patient should start metformin XR 750 mg once daily at bedtime starting tomorrow evening as this will allow time between last IV contrast. The patient should start glipizide XL 5 mg once daily in the morning. The patient should start atorvastatin 40 mg p.o. at bedtime. The patient should continue lisinopril 5 mg p.o. daily. The patient should complete fingersticks monitoring with home glucometer once daily in the morning while fasting and then she should repeat fingersticks as needed if symptomatic. The patient should follow up with Endocrinology in 2 to 4 weeks. The patient should follow up with her primary care in addition to Endocrinology regarding diabetes and for followup after starting atorvastatin. 3. Hypertension: As previously mentioned, the patient was diagnosed with hypertension while admitted. The patient is currently normotensive. The patient should continue lisinopril 5 mg p.o. daily. The patient should continue metoprolol 12.5 mg b.i.d. The patient should monitor her blood pressure at home. The patient should follow up with her primary care regarding further adjustments if needed. 4. PICC care: The patient will receive P[facility] care [facility], where she will be receiving her antibiotics and having labs drawn. 5. Education: I discussed symptoms of new or worsening condition with both the patient and her . I discussed when to return to the emergency room, call Dr. Green, call primary care. The patient and both stated understanding. Plan: This plan was discussed with my attending, Dr. Nahum Morel, who agrees with my plan. TIME SPENT: Approximately 35 minutes was spent on this discharge, greater than half that time was spent [id number] with the patient discussing my discharge plan and instructions. CARIE DOVE NP [id number]/[facility] #: [id number] [facility]
[2018-12-11] MEDS ORDERED: Vancomycin Trough Check NOTE FOLLOW UP ONE (05:30)
== END 2018-12-09 15:23 | disposition home or self-care (01) | DRG 317 ==
LOC: ED 10:58 → SSU 13:03 → OBSVTOIN 12-04 11:59
PROVIDERS: ADMIT Internal Medicine; ATTEND Internal Medicine
PROC: 0JBQ0ZZ Excision of Right Foot Subcutaneous Tissue and Fascia, Open Approach (ICD-10-PCS; 2018-12-04)
PROC: 0KBS0ZZ Excision of Right Lower Leg Muscle, Open Approach (ICD-10-PCS; principal; 2018-12-04 10:30)
PROC: 05HM33Z Insertion of Infusion Device into Right Internal Jugular Vein, Percutaneous Approach (ICD-10-PCS; 2018-12-09)
DX: E11.69 Type 2 diabetes mellitus with other specified complication (principal); M86.171 Other acute osteomyelitis, right ankle and foot; L02.415 Cutaneous abscess of right lower limb; L97.818 Non-pressure chronic ulcer of other part of right lower leg with other specified severity; E11.65 Type 2 diabetes mellitus with hyperglycemia; E11.621 Type 2 diabetes mellitus with foot ulcer; E11.622 Type 2 diabetes mellitus with other skin ulcer; L97.519 Non-pressure chronic ulcer of other part of right foot with unspecified severity; B95.1 Streptococcus, group B, as the cause of diseases classified elsewhere; I10 Essential (primary) hypertension; I73.9 Peripheral vascular disease, unspecified; F17.210 Nicotine dependence, cigarettes, uncomplicated; R11.2 Nausea with vomiting, unspecified; Z79.899 Other long term (current) drug therapy; Z88.0 Allergy status to penicillin; Z88.2 Allergy status to sulfonamides; Z91.041 Radiographic dye allergy status; Z91.010 Allergy to peanuts; Z80.1 Family history of malignant neoplasm of trachea, bronchus and lung; Z80.0 Family history of malignant neoplasm of digestive organs; Z82.3 Family history of stroke
CPT/HCPCS: 36415; 76937; 80048; 80053; 80202; 82565; 83036; 84520; 85025; 85652; 86140; 87040; 87070; 87073; 87076; 87077; 87184; 87186; 87205; 87640; 87641; 90686; 93005; 93922; 93925; 93978; 99156; 99157; 99283; 99406; A9270-GY; C1769; C1887; C1894; G0378; J0696; J0780; J1100; J1170; J1200; J1644; J1650; J1885; J2250; J2310; J2405; J2704; J2920; J3010; J3370; J3490